=== PATIENT | female | born 1940 | race Caucasian/White ===

== ENCOUNTER → 2019-05-14 | Outpatient (CLI) | payer OTHER | LOC: HYPER 06:42 | DX: T87.89 Other complications of amputation stump (principal); E11.621 Type 2 diabetes mellitus with foot ulcer; L97.512 Non-pressure chronic ulcer of other part of right foot with fat layer exposed; E11.69 Type 2 diabetes mellitus with other specified complication; M86.8X8 Other osteomyelitis, other site; E11.52 Type 2 diabetes mellitus with diabetic peripheral angiopathy with gangrene; I96 Gangrene, not elsewhere classified; E11.22 Type 2 diabetes mellitus with diabetic chronic kidney disease; N18.6 End stage renal disease; I48.2 Chronic atrial fibrillation; K50.90 Crohn's disease, unspecified, without complications; Z87.891 Personal history of nicotine dependence; Z79.82 Long term (current) use of aspirin; Z99.2 Dependence on renal dialysis; Y83.5 Amputation of limb(s) as the cause of abnormal reaction of the patient, or of later complication, without mention of misadventure at the time of the procedure ==

== ENCOUNTER → 2019-05-28 | Outpatient (CLI) | payer OTHER | LOC: HYPER 06:23 | DX: T87.89 Other complications of amputation stump (principal); E11.621 Type 2 diabetes mellitus with foot ulcer; L97.512 Non-pressure chronic ulcer of other part of right foot with fat layer exposed; E11.69 Type 2 diabetes mellitus with other specified complication; M86.8X7 Other osteomyelitis, ankle and foot; E11.52 Type 2 diabetes mellitus with diabetic peripheral angiopathy with gangrene; I96 Gangrene, not elsewhere classified; E11.22 Type 2 diabetes mellitus with diabetic chronic kidney disease; I12.9 Hypertensive chronic kidney disease with stage 1 through stage 4 chronic kidney disease, or unspecified chronic kidney disease; N18.6 End stage renal disease; I48.2 Chronic atrial fibrillation; Z99.2 Dependence on renal dialysis; Z79.82 Long term (current) use of aspirin; Z87.891 Personal history of nicotine dependence; Y83.5 Amputation of limb(s) as the cause of abnormal reaction of the patient, or of later complication, without mention of misadventure at the time of the procedure ==

== ENCOUNTER → 2019-06-11 | Outpatient (CLI) | payer OTHER | LOC: HYPER 06:58 | DX: T87.89 Other complications of amputation stump (principal); E11.621 Type 2 diabetes mellitus with foot ulcer; L97.512 Non-pressure chronic ulcer of other part of right foot with fat layer exposed; E11.22 Type 2 diabetes mellitus with diabetic chronic kidney disease; N18.6 End stage renal disease; E11.52 Type 2 diabetes mellitus with diabetic peripheral angiopathy with gangrene; I96 Gangrene, not elsewhere classified; E11.69 Type 2 diabetes mellitus with other specified complication; M86.8X8 Other osteomyelitis, other site; I48.2 Chronic atrial fibrillation; K50.90 Crohn's disease, unspecified, without complications; Z79.82 Long term (current) use of aspirin; Z99.2 Dependence on renal dialysis; Z87.891 Personal history of nicotine dependence; Z89.522 Acquired absence of left knee; Z95.820 Peripheral vascular angioplasty status with implants and grafts; Y83.5 Amputation of limb(s) as the cause of abnormal reaction of the patient, or of later complication, without mention of misadventure at the time of the procedure ==

== ENCOUNTER → 2019-06-30 | Outpatient (CLI) | payer OTHER | LOC: HYPER 06:44 | DX: T87.89 Other complications of amputation stump (principal); L97.512 Non-pressure chronic ulcer of other part of right foot with fat layer exposed; E11.22 Type 2 diabetes mellitus with diabetic chronic kidney disease; N18.6 End stage renal disease; E11.52 Type 2 diabetes mellitus with diabetic peripheral angiopathy with gangrene; I96 Gangrene, not elsewhere classified; E11.69 Type 2 diabetes mellitus with other specified complication; M86.8X8 Other osteomyelitis, other site; I48.2 Chronic atrial fibrillation; Z99.2 Dependence on renal dialysis; Z87.891 Personal history of nicotine dependence; Z89.411 Acquired absence of right great toe; Z95.820 Peripheral vascular angioplasty status with implants and grafts; Z89.522 Acquired absence of left knee; Z79.82 Long term (current) use of aspirin; K50.90 Crohn's disease, unspecified, without complications; Y83.5 Amputation of limb(s) as the cause of abnormal reaction of the patient, or of later complication, without mention of misadventure at the time of the procedure ==

== ENCOUNTER → 2019-07-07 | Outpatient (CLI) | payer OTHER | LOC: HYPER 06:44 | DX: T81.89XD Other complications of procedures, not elsewhere classified, subsequent encounter (principal); E11.621 Type 2 diabetes mellitus with foot ulcer; L97.512 Non-pressure chronic ulcer of other part of right foot with fat layer exposed; E11.22 Type 2 diabetes mellitus with diabetic chronic kidney disease; N18.6 End stage renal disease; E11.52 Type 2 diabetes mellitus with diabetic peripheral angiopathy with gangrene; I96 Gangrene, not elsewhere classified; E11.69 Type 2 diabetes mellitus with other specified complication; M86.8X7 Other osteomyelitis, ankle and foot; I48.2 Chronic atrial fibrillation; Z79.82 Long term (current) use of aspirin; Z99.2 Dependence on renal dialysis; Z87.891 Personal history of nicotine dependence; Y83.8 Other surgical procedures as the cause of abnormal reaction of the patient, or of later complication, without mention of misadventure at the time of the procedure ==

== ENCOUNTER 2019-07-21 07:11 | Inpatient (IN) | payer OTHER ==
[~2019-07-21] VITALS: Ht 157.5 cm; Wt 49.4 kg
[2019-07-21 17:58] VITALS: BP 86/48
[2019-07-21 20:04] VITALS: BP 95/50
[2019-07-21 22:09] LABS: ABSOLUTE NEUTROPHILS 8.6 thou/uL (1.4-8.2); BASOPHILS 0.6 % (0.0-2.0); HEMOGLOBIN 9.7 gm/dL (12.0-15.0); POLYS 76.6 % (36.0-66.0)
[2019-07-21 22:10] LABS: EOSINOPHILS 1.2 % (0.0-3.0); LYMPHOCYTES 13.2 % (24.0-44.0); MCHC 31.3 g/dL (28.0-37.0); MCV 79.9 fL (80.0-100.0); MONOCYTES 8.4 % (1.0-8.0); PLATELET COUNT 351 thou/uL (150-400); RBC 3.88 mil/uL (4.20-5.00); RDW 19.5 % (10.5-14.5); WBC 11.3 thou/uL (4.0-11.0)
--- NOTE | 2019-07-21 22:21 | NUR ---
PATIENT ALERT AND ORIENTED AND DIRECT ADMIT WITH RIGHT LE CELLULITIS FROM DR. RADER OFFICE. EXPERIENCING 10/10 AND CRYING FORM RIGHT LE. , DEMETRICE AT BEDSIDE UPON ADMISSION AND LIVES AT HOME WITH . USES W/C FROM TRANSPORTATION. LEFT BKA 2 YEARS AGO. DIALYSIS MWF AND RIGHT CHEST DIALYSIS CATHETER. REGULAR DIET.
[2019-07-21 22:27] LABS: ALBUMIN 2.5 g/dL (3.4-5.0); CALCIUM 10.3 mg/dL (8.5-10.1); CREATININE 5.1 mg/dL (0.6-1.0); POTASSIUM 3.7 mmol/L (3.5-5.1); TOTAL BILIRUBIN 0.3 mg/dL (<0.1-1.0); TOTAL PROTEIN 7.4 g/dL (6.4-8.2)
[2019-07-22 03:24] VITALS: BP 103/50
--- NOTE | 2019-07-22 05:07 | NUR ---
ASSUMED CARE OF PT AT 1900HRS. PT AOX4 AND CALLS FOR ASSISTANCE NEEDED. PT IS ON DIALYSIS M, W & F. ACCESS ON RIGHT CHEST. LEFT BKA COMPLETELY HEALED. COLOSTOMY BAG ON LEFT QUADRANT. PT COMPLAINED OF PAIN ENTIRE SHIFT WITH MINIMAL RELIEF FROM PRN PAIN MEDS. VSS AND WILL CONTINUE TO MONITOR.
[2019-07-22 06:29] LABS: HEMATOCRIT 28.1 % (37.0-47.0); HEMOGLOBIN 8.9 gm/dL (12.0-15.0); MCH 25.4 pg (26.0-34.0); MCHC 31.7 g/dL (28.0-37.0); PLATELET COUNT 294 thou/uL (150-400); RBC 3.52 mil/uL (4.20-5.00); RDW 19.3 % (10.5-14.5); WBC 10.2 thou/uL (4.0-11.0)
[2019-07-22 06:34] LABS: INR 1.1
[2019-07-22 06:37] LABS: ABSOLUTE RETIC COUNT 0.1099 10^6/uL; OBSERVED RETIC COUNT 2.6 % (0.6-2.6)
[2019-07-22 06:45] LABS: ALBUMIN 2.2 g/dL (3.4-5.0); CALCIUM 9.6 mg/dL (8.5-10.1); CREATININE 5.6 mg/dL (0.6-1.0); PHOSPHORUS 6.2 mg/dL (2.5-4.9)
[2019-07-22 06:47] LABS: % SATURATION 23 % (20-39); IRON 30 ug/dL (50-170); TIBC 129 ug/dL (250-450)
[2019-07-22 07:30] VITALS: BP 95/46
[2019-07-22 07:55] LABS: FERRITIN 1330 ng/mL (8-252)
[2019-07-22 08:13] LABS: ABSOLUTE NEUTROPHILS 7.9 thou/uL (1.4-8.2)
[2019-07-22 08:17] LABS: ANISOCYTOSIS 2+; OVALOCYTES 1+
[2019-07-22 08:20] LABS: POLYCHROMASIA OCCASIONAL; TEARDROPS OCCASIONAL
--- NOTE | 2019-07-22 12:30 | NUR ---
PT ADMITTED RELATED TO WOUND. CM REVIEWED CHART AND SPOKE WITH CARE TEAM. CM ATTEMPTED TO MEET WITH PT AT BEDSIDE THIS DAY BUT PT WAS SLEEPING. CM CALLED PT'S SPOUSE AND HE INDICATED THAT THEY LIVE IN A HOUSE WITH 2 STEPS TO ENTER AND NO STEPS PT USES INSIDE. 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 HE INDICATED THAT PT HAD BEEN ON SERVICE WITH [facility] LAYAWAY CLERK. HE INDICATED THAT HE ANTICPATES PT RETURNING HOME WITH [facility] ONCE MEDICALLY STABLE. CM TO FOLLOW INDICATED WITH DC PLANNING.
--- NOTE | 2019-07-22 13:21 | EKG ---
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
[2019-07-22 15:27] VITALS: BP 106/62
--- NOTE | 2019-07-22 17:55 | NUR ---
Patient has been complaining of "level ten" unrelieved right foot pain. Received new orders from Dr Cuadra for Morphine 2mg/0.5mL IV push. Patient has expressed relief from this new order. Dialysis to be done this evening, as ordered. Patient has had a moderate amount of brown vaginal discharge. Blood pressure continues to run low which is "normal" for this patient. LSCTA (diminished), abdomen is round, BS active, no new open areas on skin. Will continue to monitor.
[2019-07-22 19:25] VITALS: BP 107/53
[2019-07-22] MEDS ORDERED: NEPHRO-VITE TA0.8 MG PO (20:39)
[2019-07-22] MEDS ORDERED: MIDODRINE HCL 55 M1 PO (20:40)
[2019-07-22] MEDS ORDERED: ASPIR 8181 M1 PO ×2 (20:41→20:42)
[2019-07-22] MEDS ORDERED: XARELTO2.5 MG PO (20:43)
[2019-07-22] MEDS ORDERED: SENSIPAR 30 MG30 M1 (20:44)
[2019-07-22] MEDS ORDERED: IBUPROFEN 200200 M1 (20:44)
[2019-07-22 23:55] VITALS: BP 91/53
--- NOTE | 2019-07-23 02:26 | NUR ---
ASSUMED CARE AROUND 1900. AXOX3. MED REC COMPLETED. PT DID NOT HAVE A LIST. LIST PROBABLY NOT COMPLETE. DONE MUCH PT REMEMBERS. DIALYSIS COMPLETED. BP NOTED LOW. CALLED FUEL BUYER RAMEZ MISSILE AND MISSILE CHECKOUT TECHNICIAN FOR HIMS. NS STOPPED AND MIDODRINE RESTARTED. NO S/S ACUTE DISTRESS NOTED OR REPORTED AT THIS TIME. WILL CONT TO MONITOR ANY CHANGES IN CONDITION.
[2019-07-23 04:15] VITALS: BP 116/46
[2019-07-23 08:09] LABS: HEP B SURFACE Ab(ANTI-HBS Reactive (()); HEPATITIS B SURFACE AG Negative (Negative)
[2019-07-23 08:16] VITALS: BP 93/53
--- NOTE | 2019-07-23 11:40 | HC ---
[facility] [place] [address] CONSULTATION Name: SERENITY LOVELACE Room #: 455-P ADM IN M.R.#: [id number] Admission: 07/21/19 Attend Phys: Slim Holliday MD Discharge: Date of : 42 Report #: [id number] THIS REPORT FOR: //name// CC: Zack Baumann DATE OF SERVICE: 07/22/2019 CHIEF COMPLAINT: Ulceration. HISTORY OF PRESENT ILLNESS: This is a 78-year-old female patient with a history of end-stage renal disease and peripheral vascular disease and prior left below knee amputation, who was admitted from the wound care clinic yesterday with increasing pain and redness involving her right foot, in particular the right first MTP or first metatarsal. She has had a prior amputation of the right toe. The patient notes continued and worsening pain and is now admitted for further evaluation and treatment. PAST MEDICAL HISTORY: Positive for history of end-stage renal disease, requiring hemodialysis, history of Crohn's disease, peripheral vascular disease, status post previous vascular bypass. ALLERGIES: CODEINE. SOCIAL HISTORY: The patient smoked 1 pack per day, having quit 5 years ago. No alcohol intake. FAMILY HISTORY: Positive for prostate cancer in her father. MEDICATIONS: Fludrocortisone, morphine, oxycodone, polyethylene glycol, and vancomycin. ALLERGIES: CODEINE. REVIEW OF SYSTEMS: CONSTITUTIONAL: The patient denies fever, chills, or weight loss. NEUROLOGICAL: The patient denies focal weakness. ENT: The patient denies earache, nasal drainage, sore throat. CARDIOVASCULAR: The patient denies chest pain, palpitations or diaphoresis. PULMONARY: The patient denies cough or shortness of breath. GASTROINTESTINAL: The patient denies nausea, vomiting, or diarrhea. ORTHOPEDIC: The patient has a prior left below-knee amputation and has significant pain involving her right foot and leg. [facility] [address] [place] [address] CONSULTATION Name: SERENITY LOVELACE Room #: 455-P ADM IN [facility].#: [id number] Admission: 07/21/19 Attend Phys: Slim Holliday MD Discharge: Date of : 42 Report #: [id number] Other systems in a 14-point review of systems are negative. PHYSICAL EXAMINATION: VITAL SIGNS: At this time Include temperature 36.3, pulse 41, respirations 13, blood pressure 95/46. GENERAL: This is a chronically ill-appearing female patient who appears to be in moderate discomfort. HEENT: Head is normocephalic. Nose and throat clear. NECK: Supple. LUNGS: Clear. ABDOMEN: Soft. Bowel sounds present. She has a colostomy in place. It appears to be functioning. EXTREMITIES: Lower extremity demonstrates healed prior left below knee amputation. She has a surgically absent right great toe. The amputation site is not entirely healed. Some of the tissue is contracted. It is very tender. She also has ulceration on the plantar aspect of the foot as well as the right second toe. Distal pulses are not palpable. NEUROLOGIC: The patient is alert and does move all 4 extremities spontaneously. LABORATORY DATA: Includes white blood cell count 10.2 with hemoglobin of 8.9, hematocrit 28.1. Sodium 136, potassium 4.0, chloride 101, CO2 20, BUN 44, creatinine 5.6, glucose 93, calcium is 9.6, phosphorus is 6.2. CRP is markedly elevated at 243.5, albumin is 2.2. MRSA PCR is negative. INR is 1.1. CLINICAL IMPRESSION: 1. Nonhealing surgical wound to the right foot following amputation of the right great toe. One would consider the possibility of underlying bone infection, i.e., osteomyelitis. 2. Severe peripheral vascular disease. Doppler studies on this admission demonstrate monophasic waveforms from the common femoral artery through superficial femoral artery, likely indicating aortic or iliac stenosis, occlusion from the popliteal artery throughout the runoff vessels in the calf with reconstitution of the dorsalis pedis in the foot, bypass graft in the thighs occluded. Recommendations for additional angiography were made by the radiologist reading the study. RECOMMENDATIONS: At this point in time, we will recommend Xeroform gauze dressing and a dry gauze dressing to the amputation site of the right foot. We will consult Interventional Radiology, also obtain plain film x-rays, and MRI of the right foot to evaluate for underlying bone infection. With her severe peripheral vascular disease, I think she would be at high risk for any surgical [address] [address] CONSULTATION Name: SERENITY LOVELACE Room #: 455-P ADM IN M.R.#: [id number] Admission: 07/21/19 Attend Phys: Slim Holliday MD Discharge: Date of : 42 Report #: [id number] intervention on the foot. It may be possible that she would be amenable to an endovascular procedure. I appreciate being asked to see her in consultation. <ELECTRONICALLY SIGNED> By: Griffin Franco MD 07/23/19 1140 1526 0208 Griffin Franco MD /nt
[2019-07-23 14:06] VITALS: BP 136/56
[2019-07-23 19:35] VITALS: BP 101/52
--- NOTE | 2019-07-23 20:10 | NUR ---
ASSUMED CARE OF PATIENT AT 0715, PATIENT ALERT AND ORIENTED X 4. PATIENT BEDREST. PATIENT HAS RIGHT FOOT WOUND, DRESSING C/D/I. PATIENT C/O PAIN WITH RIGHT FOOT, RECEIVED MORPHINE 2MG IV AND OXYCODONE 1 TABLET WITH PARTIAL RELIEF. PATIENT HAD LIGHT BREAKFAST, AND NPO FOR LUNCH FOR ARTERIOGRAM THIS AFTERNOON, PATIENT LEFT FLOOR AT 1500, VIA BED. PATIENT ARRIVED BACK ON THE UNIT AT ABOUT 1830, REPORT FROM MARIELA/RN. PATIENT ON BEDREST UNTIL 2140. PATIENT HAS DRESSING TO LEFT GROIN, NO OCCULSION FOUND. PATIENT CONTINUES WITH DISCHARGE FROM VAGINAL AREA, BROWNISH COLOR WITH FOUL ODOR, THIS RN NOTIFIED DR FU, RECEIVED ORDER FOR LOTRIMIN CREAM BID VAGINAL, ORDER FOR PELVIC ULTRASOUND WILL DONE IN AM. WHEN PATIENT ARRIVED BACK ON THE UNIT, NO C/O PAIN, SHE RECEIVED FENTANYL 25 MCG IV IN PROCEDURE. WILL CONTINUE TO MONITOR.
[2019-07-24 00:45] VITALS: BP 99/59
--- NOTE | 2019-07-24 04:30 | NUR ---
ASSESSMENTS COMPLETED. PT A&OX4. C/O OF SEVERE UNCONTROLLED PAIN TO LEFT RIGHT FOOT. PT STILL HAVING MODERATE BROWN FOWL ODOR VAGINAL DISCHARGE. LOTRIMIN BID WAS STARTED . PT HAS A COLOSTOMY AND IS PASSING A LOT OF FLATUS. PT IS TOTALLY DEPENDENT ON STAFF FOR ADL'S. PT IS GOING FOR DIALYSIS THIS MORNING (MWF).
[2019-07-24 05:11] LABS: CALCIUM 9.9 mg/dL (8.5-10.1); MAGNESIUM 1.5 mg/dL (1.8-2.4); PHOSPHORUS 6.8 mg/dL (2.5-4.9); POTASSIUM 4.3 mmol/L (3.5-5.1)
[2019-07-24 05:51] LABS: HEMATOCRIT 28.5 % (37.0-47.0); HEMOGLOBIN 8.7 gm/dL (12.0-15.0); MCHC 30.5 g/dL (28.0-37.0); RBC 3.48 mil/uL (4.20-5.00); RDW 18.6 % (10.5-14.5); WBC 13.1 thou/uL (4.0-11.0)
[2019-07-24 05:57] LABS: CREATININE 4.3 mg/dL (0.6-1.0)
[2019-07-24 08:26] VITALS: BP 103/74
--- NOTE | 2019-07-24 16:08 | NUR ---
CARE TEAM INDICATED WE ARE AWAITING POD CONSULT. IT IS LIKELY THAT PT WILL REMAIN HERE OVER THE WEEKEND. CM TO FOLLOW INDICATED WITH DC PLANNING.
[2019-07-24 16:55] VITALS: BP 92/50
[2019-07-24 19:15] VITALS: BP 94/48
--- NOTE | 2019-07-24 20:32 | NUR ---
PATIENT ALERT AND ORIENTED AND IN BED ALL DAY EXCEPT FOR US PROCEDURE. PATIENT SEEMS TO REST WELL AFTER IV AND PO MEDS GIVEN. PATIENT IS NOT EATING MUCH AND DIETARY NOTIFIED AND CAME TO DISCUSS DIET WITH PATIENT. WOUND DRESSING CHANGED. SPOKE WITH . NO VISITORS TODAY.
[2019-07-24 23:45] VITALS: BP 99/56
--- NOTE | 2019-07-25 03:27 | NUR ---
ASSUMED CARE OF PT @1900. PT A&OX4. PT APPEARS MORE COMFORTABLE AFTER PAIN MED WAS ADMINISTERED. RIGHT FOOT DRESSING, INTACT WITH MINOR DRAINAGE. PT HAD DIALYSIS YESTEDAY AND 1L OF FLUID WAS TAKEN OUT. PT STILL HAS VERY POOR APPETITE AND DECLINED ANY SUPPLEMENTS. V/S ARE STABLE. WILL CONT TO MONITOR
[2019-07-25 04:12] VITALS: BP 84/53
[2019-07-25 04:58] LABS: HEMATOCRIT 26.6 % (37.0-47.0); HEMOGLOBIN 8.2 gm/dL (12.0-15.0); MCHC 30.8 g/dL (28.0-37.0); MCV 81.3 fL (80.0-100.0); RBC 3.27 mil/uL (4.20-5.00); RDW 18.4 % (10.5-14.5); WBC 10.9 thou/uL (4.0-11.0)
[2019-07-25 05:12] LABS: CALCIUM 9.9 mg/dL (8.5-10.1); CREATININE 3.5 mg/dL (0.6-1.0); MAGNESIUM 2.4 mg/dL (1.8-2.4); PHOSPHORUS 5.6 mg/dL (2.5-4.9); POTASSIUM 3.8 mmol/L (3.5-5.1)
[2019-07-25 08:41] VITALS: BP 92/51
--- NOTE | 2019-07-25 12:33 | NUR ---
Received awake on bed. Due medications given as prescribed, able to swallow tablets w/o difficulty. Complained of pain, due PRN pain medications given as prescribed. On O2 at 2lpm via nasal cannula. With colostomy in place- output measured and recorded accordingly. Pt encouraged and assisted in eating and drinking. With dialysis external port at R chest- transparent dressing in place- pt's dialsis schedule every --, last dialysis was yesterday 07/24 as per shift supervisor melting nurse's report. With L BKA. With wound at R foot- dressing in place, changed by night staff nurse at 5am C/D/I. Pt turned regularly. With SL at R FA. With dressing at L groin- C/D/I. Pt seen by Dr Huynh this AM- wound assessed, pt not needing surgery, dressing changed by physician.
[2019-07-25 16:26] VITALS: BP 94/53
[2019-07-25 19:55] VITALS: BP 99/60
[2019-07-26] VITALS (8 sets, daily range): BP systolic 74–106; BP diastolic 42–62
--- NOTE | 2019-07-26 04:12 | NUR ---
ASSESSMENTS COMPLETED. PT C/O OF RIGHT FOOT PAIN AND WAS MEDICATED ORDERED, WITH SOME RELIEF. DREESINGS CLEAN, DRY AND INTACT. PT HAD MODERATE BROWN VAGINAL DISCHARGE. PT IS STILL ON THE LOTRIMIN CREAM BID. COLOSTOMY IS PATENT WITH MODERATE OUTPUT. PT IS ANURIC. VITALS STABLE. WILL CONT TO MONITOR
[2019-07-26 05:41] LABS: HEMATOCRIT 27.6 % (37.0-47.0); HEMOGLOBIN 8.4 gm/dL (12.0-15.0); MCH 24.6 pg (26.0-34.0); MCHC 30.3 g/dL (28.0-37.0); MCV 81.1 fL (80.0-100.0); RBC 3.4 mil/uL (4.20-5.00); RDW 18.3 % (10.5-14.5)
[2019-07-26 05:56] LABS: CALCIUM 9.8 mg/dL (8.5-10.1); MAGNESIUM 2.4 mg/dL (1.8-2.4); PHOSPHORUS 6.8 mg/dL (2.5-4.9); POTASSIUM 3.7 mmol/L (3.5-5.1)
[2019-07-26 05:57] LABS: CREATININE 5.2 mg/dL (0.6-1.0)
[2019-07-26 16:51] LABS: BE(vivo) -4.5 mmol/L (-2 to +3); HCO3 21.5 mmol/L (22.0-26.0); PCO2 43.3 mmHg (35.0-45.0); PO2 56.7 mmHg (80.0-100.0); pH 7.313 (7.360-7.450)
[2019-07-26 18:20] LABS: HEMATOCRIT 29.6 % (37.0-47.0); MCH 24.9 pg (26.0-34.0); MCHC 30.5 g/dL (28.0-37.0); MCV 81.6 fL (80.0-100.0); PLATELET COUNT 377 thou/uL (150-400); RBC 3.62 mil/uL (4.20-5.00); RDW 17.8 % (10.5-14.5); WBC 10.2 thou/uL (4.0-11.0)
[2019-07-26 18:30] LABS: CALCIUM 9.3 mg/dL (8.5-10.1); POTASSIUM 3.8 mmol/L (3.5-5.1)
[2019-07-26 18:36] LABS: ALBUMIN 2.1 g/dL (3.4-5.0); MAGNESIUM 2.4 mg/dL (1.8-2.4); TOTAL BILIRUBIN 0.3 mg/dL (<0.1-1.0); TOTAL PROTEIN 6.8 g/dL (6.4-8.2)
[2019-07-26 18:54] LABS: ABSOLUTE NEUTROPHILS 8.1 thou/uL (1.4-8.2)
[2019-07-26 18:55] LABS: ANISOCYTOSIS 1+
--- NOTE | 2019-07-26 19:43 | NUR ---
Assumed pt care this am, pt is scheduled for dialysis tomorrow. Wound care done, cultures sent to lab. Supplements were encouraged and were consumed , though meals were a full assists. Medication administered for her vaginal discharges, minimal discharge has been noted. Pt has a fever this am, managed with medication. Pt was lethargic in the afternoon, q2 turns and pericare done. Colostomy intact and care done. BP dropped to 74/45, pt was lethargy and skin was dusky. Informed Dr. Gonsalez, placed pt on trendelenberg, orderes flowed. Monitored pt vs til pt was jose miguel to the ICU, called to inform of the situations. All belongings and medication was brought down to the ICU along with her wheelchair. POC followed, report given to the ICU nurse.
[2019-07-26 19:53] LABS: BE(vivo) -4.2 mmol/L (-2 to +3); HCO3 21.8 mmol/L (22.0-26.0); PCO2 43.9 mmHg (35.0-45.0); PO2 55.6 mmHg (80.0-100.0); pH 7.313 (7.360-7.450); sO2 86.3 % (92.0-98.0)
--- NOTE | 2019-07-26 20:40 | NUR ---
DR HENRY CALLED FOR LOW BP AND ABG'S PH 7.31 LEFT ORDERS TO DC BICARB GTT AND TO INCREASE MIDDRINE TO 10 MG TID. HE STATES THE PT IS RENAL AND ALWAYS RUNS A LOW BP. WILL CONT TO MONITOR.
[2019-07-27] VITALS (16 sets, daily range): BP systolic 76–100; BP diastolic 30–60
--- NOTE | 2019-07-27 01:35 | NUR ---
SBP 78/44 ROMELIA AVALOS PRN PHYSICAL THERAPIST NOTIFIED. MIDODRINE 5 MG ORDERED AND GIVEN A ONE TIME DOSE. WILL CONT TO MONITOR.
--- NOTE | 2019-07-27 06:00 | NUR ---
PT RESTING QUIETLY. STARTED ON BIPAP PER ORDER. REMAINS ANURIC SBP 93/50 MAP 73 WILL HAVE DIALYSIS THIS AM. RIGHT FOOT DRESSING INTACT. SINUS RHYTHM. PT REMAINS A DNR. WILL CONT TO MONITOR
[2019-07-27 06:12] LABS: ABSOLUTE NEUTROPHILS 10.1 thou/uL (1.4-8.2); BASOPHILS 0.4 % (0.0-2.0); HEMATOCRIT 26.8 % (37.0-47.0); HEMOGLOBIN 8.3 gm/dL (12.0-15.0); LYMPHOCYTES 3.4 % (24.0-44.0); MCHC 30.8 g/dL (28.0-37.0); MCV 81.1 fL (80.0-100.0); MONOCYTES 3.4 % (1.0-8.0); PLATELET COUNT 378 thou/uL (150-400); POLYS 92.8 % (36.0-66.0); RBC 3.31 mil/uL (4.20-5.00); RDW 17.6 % (10.5-14.5); WBC 10.9 thou/uL (4.0-11.0)
[2019-07-27 06:33] LABS: ALBUMIN 1.9 g/dL (3.4-5.0); CALCIUM 9.2 mg/dL (8.5-10.1); CREATININE 6.7 mg/dL (0.6-1.0); MAGNESIUM 2.3 mg/dL (1.8-2.4); PHOSPHORUS 9.4 mg/dL (2.5-4.9); POTASSIUM 4.1 mmol/L (3.5-5.1); TOTAL BILIRUBIN 0.2 mg/dL (<0.1-1.0); TOTAL PROTEIN 6.3 g/dL (6.4-8.2)
--- NOTE | 2019-07-27 16:54 | NUR ---
FOLLOWING FOR DC PLANNING. CLINICAL INFO REVIEWED. PT TRANSFERRED TO ICU R/T SEPSIS WITH HYPOTENSION. ALSO REQUIRING BIPAP WHICH IS OFF NOW AND ON 3 LITERS NC. ON IV ABX AND WOUND CARE (FOOT OSTEO). PT LIVES AT HOME WITH SPOUSE AND HAD BEEM W/C LEVEL PRIOR TO ADMIT. PLANNING FOR HOME WITH HH RESUMPTION ([facility]
[2019-07-28] VITALS (22 sets, daily range): BP systolic 78–97; BP diastolic 42–72
[2019-07-28 05:58] LABS: HEMATOCRIT 24.6 % (37.0-47.0); HEMOGLOBIN 7.7 gm/dL (12.0-15.0); MCH 25.2 pg (26.0-34.0); MCHC 31.3 g/dL (28.0-37.0); MCV 80.5 fL (80.0-100.0); RBC 3.06 mil/uL (4.20-5.00); RDW 17.3 % (10.5-14.5); WBC 9.9 thou/uL (4.0-11.0)
[2019-07-28 06:06] LABS: APTT 34.7 Seconds (24.5-32.8); INR 1.3; PROTIME 13.5 Seconds (9.3-11.4)
--- NOTE | 2019-07-28 06:09 | NUR ---
ASSUMED CARE OF PT AT 1900. PT DROWSY, ORIENTED TO PERSON, PLACE AND SITUATION. DR CALDERON IN ROOM AT 1900 DISCUSSING RESECTION OF RIGHT GREAT TOE SURGERY. PT MADE NPO AFTER 0000. PT HAS BEEN C/O RIGHT GREAT TOE PAIN. PRN PAIN MEDS GIVEN PER ORDER. THIS AM PT STARTED ON FENTANYL DUE TO NPO STATUS. SR WITH PVCs ON THE MONITOR. BP SOFT THROUGH OUT NIGHT. WILL CONTINUE TO MONITOR PT.
[2019-07-28 06:38] LABS: CALCIUM 8.7 mg/dL (8.5-10.1); CREATININE 3.6 mg/dL (0.6-1.0); MAGNESIUM 1.9 mg/dL (1.8-2.4); POTASSIUM 3.6 mmol/L (3.5-5.1)
--- NOTE | 2019-07-28 13:33 | NUR ---
PT TO HAVE TOE AMPUTATED LATER TODAY. SEEN BY P.T. AND PT AND SPOUSE GOAL IS TO RETURN HOME AT DC WITH [facility]. PT W/C LEVEL PRIOR TO ADMIT AND TRANSFERS EASILY AND SPOUSE ABLE TO ASSIST. PT AND SPOUSE DO NOT WANT SKILLED REHAB. REQUESTED DC LODE MINER BLASTING CALL [facility] TO UPDATE IF CURRENTLY ON SERVICE OR FAX REFERRAL FOR POSSIBLE DC HOME 07/29/19 (DC TIMELINE PER DR. ALBERT TODAY IN [facility]). THERAPY WILL SEE AFTER AMPUTATION WELL.
--- NOTE | 2019-07-28 14:32 | NUR ---
PT SCHEDULED FOR SURGERY TODAY. MORE APPROPRIATE FOR O.T. TO ASSESS AFTER SURGERY WTIH NEW ORDERS DUE TO CHANGE IN STATUS. RN INFORMED.
--- NOTE | 2019-07-28 15:31 | NUR ---
patient to have sx today. Discussed post acute care with sp and patient. They prefer home with , [facility] care. Gave [employer] skilled list to review if post acute care needed at id.
--- NOTE | 2019-07-28 16:05 | NUR ---
PT IS ON SERVICE WITH [facility] FAXED CLINICAL UPDATE SPOKE WITH DERIC IN INTAKE SHE RECEIVED UPDATE AND THEY RESUME HH AT DISCHARGE. ANTICPATE DC TOMORROW. DCP TO FOLLOW.
--- NOTE | 2019-07-28 18:38 | NUR ---
SURGERY TODAY FOR REVISION OF R GREAT TOE. TOLERATED WELL. WILL RETURN TO UNIT WITH PACKING TO WOUND, 4X4, AND TERRIE WRAP. BP IN RECOVERY 90/50, HR, 76 AND SATS 100% ON 2LNC
--- NOTE | 2019-07-28 18:40 | HC ---
[facility] [place] [address] CONSULTATION Name: SERENITY LOVELACE Room #: 239-P ADM IN M.R.#: [id number] Admission: 07/21/19 Attend Phys: Slim Holliday MD Discharge: Date of : 42 Report #: [id number] THIS REPORT FOR: //name// CC: Zack Baumann DATE OF SERVICE: 07/25/2019 ADMISSION DIAGNOSES: Sepsis, right foot infection. HISTORY OF PRESENT ILLNESS: The patient is a 78-year-old female admitted for septicemia with increased pain and swelling to the right distal foot with open postoperative wound to the hallux amputation site. She is currently on parenteral vancomycin and ceftriaxone. She had an angiogram 2 days ago, which showed mild right SFA stenosis that was not felt to be flow limiting. Recent foot post-admission MRI shows inflammation to the right second toe intermediate and distal phalanges consistent with osteomyelitis, but there is no bone destruction. The MRI had no signs of infection to the distal right first metatarsal at the hallux amputation disarticulation site. The patient is alert and oriented, relates moderate pain with palpation to the right distal foot. LABORATORY DATA: WBC 10.9, hemoglobin 8.2, hematocrit 26.2, platelets 327. BUN 16, creatinine 3.5, glucose 65. Albumin 2.2. PHYSICAL EXAMINATION: The patient is status post left BKA. Her right foot has a wound at the hallux amputation site that is transversely oriented measuring roughly 5.0 x 2.0 x 1.0 cm. I cannot palpate bone, as her some soft tissue covering the distal first metatarsal. I cannot probe to the adjacent second digit or second MTP joint. There is no fluctuance or crepitation. The foot is slightly warm to the touch. The distal foot and toes are very painful to the touch. The second toe has a scab at the dorsal proximal aspect, but no signs of an open wound or signs of deep infection. Toenails are dystrophic without paronychia. No right popliteal adenopathy noted, negative Homans' and Amaral sign to right leg. IMPRESSION: Postoperative wound to right hallux amputation site, no clinical signs of abscess. PLAN: I do not recommend surgical intervention at this time. I do not see any evidence of an abscess to the wound, as unable to probe to the distal first metatarsal with a sterile Q-tip and there is no expressible fluid. There is no fluctuance or crepitation or clinical signs of abscess. I do not feel there is osteomyelitis to the right second toe, as there are no penetrating wound to the anteromedial distal phalanges, and the existing hallux amputation wound does not [address] [address] CONSULTATION Name: SERENITY LOVELACE Room #: 239-P ADM IN M.R.#: [id number] Admission: 07/21/19 Attend Phys: Slim Holliday MD Discharge: Date of : 42 Report #: [id number] track in that direction. Also, I did order a foot radiographs to look for any lytic bone destruction. I recommend continuing palliative wound care to the right foot per the wound care team. I do not recommend any formal surgical debridement at this time. <ELECTRONICALLY SIGNED> By: Anmol Huynh DPM 07/28/19 1840 1131 0007 Anmol Huynh DPM /nt
--- NOTE | 2019-07-28 18:40 | HC ---
[facility] [place] [address] CONSULTATION Name: SERENITY LOVELACE Room #: 239-P ADM IN M.R.#: [id number] Admission: 07/21/19 Attend Phys: Slim Holliday MD Discharge: Date of : 42 Report #: [id number] THIS REPORT FOR: //name// CC: Zack Baumann DATE OF SERVICE: 07/27/2019 CHIEF COMPLAINT: Followup of nonhealing ulceration to the right distal hallux amputation site. Prior MRI was negative for osteomyelitis of the distal first metatarsal, and it was noted that the great toe phalanges were surgically absent. Recent foot radiographs show a residual portion on the base of the proximal phalanx, which is articulating with the first metatarsal. The patient continues to have significant pain to the area with light touch. She has been afebrile, stable appetite. Recently transferred to the ICU for hypotension, on pressors. She is alert and oriented to her prior baseline. She dialyzed yesterday. She is on parenteral Zosyn and vancomycin, status post angiogram with noted stenosis to the right SFA, not felt to be flow limiting. Blood cultures pending, no growth so far. Right foot wound culture pending, no organisms on Gram stain. LABORATORY DATA: WBC 10.9, RBC 3.31, hemoglobin 8.3, hematocrit 26.8, platelets 378. BUN 29, creatinine 6.7, glucose 163. PHYSICAL EXAMINATION: Nonhealing ulceration to the prior right hallux amputation site with some scant purulence at the lateral wound margin. No visible bone with scant pale granulation across the wound bed. The area is exquisitely tender to the touch, low-grade inflammation, no signs of acute vascular embarrassment. The adjacent second toe is intact with a scab over the dorsal base of the phalanges. No signs of gangrene or deep infection to the second toe. Nonpalpable pedal pulses to the right foot. IMPRESSION: Likely osteomyelitis, residual phalangeal base and possibly distal first metatarsal. PLAN: We will plan surgical debridement of the right foot tomorrow to include resection of the residual phalangeal base and likely distal first metatarsal with bone and soft tissue cultures. I discussed the procedure with the patient and I will notify family. I will keep her n.p.o. past midnight. <ELECTRONICALLY SIGNED> By: Anmol Huynh DPM 07/28/19 1840 [id number] Anmol uHynh DPM /nt
[2019-07-29] VITALS (31 sets, daily range): BP systolic 81–123; BP diastolic 43–80
[2019-07-29 05:46] LABS: HEMATOCRIT 23.9 % (37.0-47.0); HEMOGLOBIN 7.5 gm/dL (12.0-15.0); MCH 25.1 pg (26.0-34.0); MCHC 31.2 g/dL (28.0-37.0); MCV 80.4 fL (80.0-100.0); RBC 2.98 mil/uL (4.20-5.00); RDW 17.6 % (10.5-14.5); WBC 9.3 thou/uL (4.0-11.0)
[2019-07-29 06:01] LABS: ALBUMIN 1.7 g/dL (3.4-5.0); CALCIUM 8.3 mg/dL (8.5-10.1); PHOSPHORUS 5.5 mg/dL (2.5-4.9); POTASSIUM 3.3 mmol/L (3.5-5.1)
--- NOTE | 2019-07-29 06:13 | NUR ---
PT ARRIVED TO ICU FROM RECOVERY ACCOMPANIED BY 2 RN's AT 1900. M/S TELE STATUS. BP SOFT THROUGH OUT THE NIGHT. HD THIS AM PER RENAL ORDERS. PT TOLERATING WELL. WILL MONITOR FOR DISRHYTHMIAS WHILE ON HD.
--- NOTE | 2019-07-29 08:01 | NUR ---
THIS AM AT 0702, WHILE RECEIVING HD, PT WENT INTO A-FIB WITH RVR. DR HENRY PAGED AND SPOKE COMMUNICATED TO DIALYSIS NURSE THAT HE WANTED CARDIOLOGY CONSULTED. CARDIOLOGY ANSWERING SERVICE FOR CARDIOLOGY CALLED AT 0715, STILL AWAITING CALL RETURN. DR ALBERT PAGED ANG GAVE ORDERS FOR AMIODARONE BOLUS. REPORT GIVEN TO ONCOMING RNs, HANY AND MAGDALENO.
--- NOTE | 2019-07-29 08:23 | EKG ---
[place] [address] [facility] [place] [address] ELECTROCARDIOGRAM REPORT Name: SERENITY LOVELACE Room #: 239-P ADM IN M.R.#: [id number] Admission: 07/21/19 Attend Phys: Slim Holliday MD Discharge: Date of : 42 Report #: [id number] THIS REPORT FOR: //name// 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 : 1940 Requested By: Bianca Huerta Order Number: [id number] MD: Trey Conrad Measurements Intervals [place] Rate: 157 P: [place]: QRS: 39 QRSD: 79 T: QT: 289 QTc: 468 Interpretive Statements Atrial fibrillation with rapid V-rate Low voltage, extremity leads Repolarization abnormality, prob rate related Compared to ECG 07/22/2019 08:49:21 Atrial fibrillation has replaced sinus tachycardia nonspecific change in the ST and T-wave segments Electronically Signed On 07-29-2019 8:23:14 CDT by Trey Conrad [email or web address] <ELECTRONICALLY SIGNED> By: Trey Conrad MD, [facility] 07/29/19 0823 5 5 Trey Conrad MD, [facility] /EPI
--- NOTE | 2019-07-29 10:20 | NUR ---
Converted to SR 90's after Lopressor 5mg slow IVP, Amiodarone bolus of 150mg IVPB, and start of Amiodarone gtt at 1 mg/min. Hemodialysis completed. 500ml UF removed.
--- NOTE | 2019-07-29 16:05 | NUR ---
AMiodarone gtt started at 1005 after 150mg IVPB bolus at 1 mg/min x6 hrs. Decreased to 0.5mg/min at 1605 as ordered. Pt remains in SR.
--- NOTE | 2019-07-29 16:53 | NUR ---
Report to Lizbeth TRAN. Staffing change.
[2019-07-30] VITALS (7 sets, daily range): BP systolic 88–118; BP diastolic 56–72
--- NOTE | 2019-07-30 05:08 | NUR ---
PT. ARRIVED AT FLOOR AROUND 0130; PT. CRYING; C/O PAIN; ALERT TO PERSON; ST. "LEAVE ME ALONE"; PRN PAIN MEDICATION GIVEN; PAIN RE-ASSESSMENT PT. SLEEPING; AROUND 0330 SLEEP INTERRUPTED TO CHANGE COLOSTOMY BAG; PT. AOX4; ST. DECREASE PAIN; HELPED CHANGE COLOSTOMY BAG; CHECK CHARTING; VS WNL; SINUS RYTHM THROUGH THE NIGHT; ABLE TO REST WITH EYES CLOSED FOR A FEW HOURS; MONITORING; WILL PASS ON REPORT.
[2019-07-30] MEDS ORDERED: OXYCODONE HCL 55 MG PO (09:33)
[2019-07-30] MEDS ORDERED: PACERONE 200 M200 M1 PO (09:33)
[2019-07-30] MEDS ORDERED: ZOSYN 3.3753.375 GM IV (09:34)
[2019-07-30] MEDS ORDERED: VAN500AD IV (09:36)
[2019-07-30] MEDS ORDERED: GYNE-LOTRIMIN-745 GM VAG (09:36)
[2019-07-30] MEDS ORDERED: FLORINEF ACETA0.1 MG PO (09:36)
--- NOTE | 2019-07-30 11:17 | NUR ---
WOUND CARE FOLLOW UP; ROUNDING WITH DR MARIELA BASURTO TODAY. THE DRESSING WAS ALREADY DONE TODAY AND IT IS VERY PAINFUL TO THE PATIENT. DR BASURTO WAS ABLE TO ASSESS THE TOES. RECOMMENDATIONS; CONTINUE CURRENT TREATMENT
[2019-07-30] MEDS ORDERED: AUGMENTIN 875-1 EACH PO (11:33)
--- NOTE | 2019-07-30 12:27 | NUR ---
patient to dc home today, using fina scott faxed orders to [place] office, [place]
--- NOTE | 2019-07-30 15:24 | NUR ---
SNF recommendations discussed with the pt at bedside and her spouse via phone. Pt initially was adament about returning home with Tessy BENZ and going to her outpt dialysis. After talking with her spouse, she is now agreeable to a snf stay due to her need for skilled monitoring, o2 weaning, pain mgnt, therapy for transfer training and adl's. SNF list for [employer] reviewed. The pt's dialysis clinic is [facility] at [phone] and her schedule is 11:15am MWF. The pt has been to snf in the past and prefers to go to [facility] on [address] . Dc cyber intel planner faxed the referral. Java Flex Developer spoke with Giulia in admissions and they can accept pending ins auth. She will submit this afternoon. The pt is normally not on o2 or bipap at home. Her dialysis clinic needs her dc summary, flow sheets, labs, and consults faxed to [phone], phone [phone]. [facility] can provide w/c van transport to dialysis. Tessy BENZ updated on the dc plan as well as the attending and the care team. Will follow and arrange her transfer once auth obtained.
--- NOTE | 2019-07-30 17:36 | NUR ---
ASSUMED CARE OF PT AT SHIFT CHANGE. ASSESSMENTS CHARTED. MED GIVEN PER JAN. VSS. A&O. PT WORKED BRIEFLY WITH PHYS THERAPY. PAIN MANAGED WTIH PO AND IV MEDS. PT HAS COLOSTOMY BAG AND IS ANURIC. WAITING FOR AUTH TO DC TO SNF. WILL CONTINUE TO MONITOR AND FOLLOW POC.
[2019-07-31 03:00] VITALS: BP 90/53
--- NOTE | 2019-07-31 03:11 | NUR ---
RECEIVED PT'S CARE AT 1900; PT. ON BED; RESTING WITH EYES CLOSED; SLEEP INTERRUPTED DURING SHIFT CHANGE; ALERT; DROWSY; RECOGNIZED NURSE COMMING BACK; DURING ASSESSMENT C/O PAIN; 06/27; PRN PAIN MEDICATION GIVEN TOGETHER WITH HS MEDICATION; SBP ON THE 90s; NO C/O SOB; NO C/O HEADACHE; PAIN RE-ASSESSMENT PT. RESTING WITH EYES CLOSED; TURNED FROM SIDE TO SIDE THROUGH THE NIGHT; SYNUS RYM; MONITORING; ASSESSMENT CHARGED; FOLLOWING POC; WILL PASS ON REPORT.
[2019-07-31 07:25] VITALS: BP 98/57
--- NOTE | 2019-07-31 09:56 | NUR ---
AWAKE, ALERT, CALM, COOPERATIVE. ASSISTED WITH BREAKFAST TRAY AND FEEDS HERSELF. A.M. MEDS HELD PER NUCLEAR POWER REACTOR OPERATOR; DIALYSIS IN PROGRESS NOW. FALL PRECAUTIONS IN PLACE. CLOSE TO NURSES' STATION. FREQUENT CHECKS. WILL CONTINUE TO MONITOR.
[2019-07-31 11:54] VITALS: BP 96/54
--- NOTE | 2019-07-31 15:55 | NUR ---
PT DISCHARGING TODAY TO [facility] RECEIVED CONFIRMATION LEFT MSG WITH JIMENA IN ADM THAT DC ORDERS/SUMMARY HAVE BEEN FAXED.
--- NOTE | 2019-07-31 16:25 | NUR ---
Auth rec'd from the ins per Giulia in admissions at [facility]. They will transport the pt at 5pm today. Dc orders faxed and confirmed with Giulia. Dc time and plan confirmed with the pt at bedside and her spouse via phone. He will meet her at the facility at 5:30pm. Chart copy and scripts ready to be sent with the pt. Nursing to call report. Dc summary and instr faxed to her dialysis clinic as well for resumption on Saturday at 11:15am. SNF to transport her. Care team updated. Pt off bipap and weaning down on o2 at 2liters.
[2019-07-31 16:43] VITALS: BP 104/55
--- NOTE | 2019-07-31 17:09 | PATH ---
[facility] [address] [place] [address] PATHOLOGY RPT PROCEDURE Name: SERENITY LOVELACE Room #: 202-P ADM IN M.R.#: [id number] Admission: 07/21/19 Date of : 44 Discharge: Report #: [id number] Path Case #: [id number] LCA Accession Number: [id number] . 01 Material submitted: . toe - RIGHT DISTAL 1ST METATARSAL AND RESIDUAL GREAT TOE BONE. Modifiers: right, distal . 01 Clinical history: . Osteomyelitis right first metatarsal . 02 Diagnosis: Toe, right distal first metatarsal and residual great toe bone, amputation: - Fragments of bone showing acute and chronic osteomyelitis. - Inked margins showing viable and unremarkable bone as well as cartilage. (IUV:loraine; 07/31/2019) QMS 07/31/2019 1345 Local . 02 Electronically signed: . Joyce Luke MD, Pathologist NPI- [id number] . 01 Gross description: . The specimen is received in formalin, labeled "Serenity Lovelace, right distal first metatarsal and residual great toe". Received is a segment of bone displaying one blunt margin, consistent with transection, and one smooth, convex margin, consistent with disarticulation, measuring 2.6 x 2.3 x 2.0 cm in greatest dimensions. The transected margin is inked black. A full-thickness cross-section is submitted in cassette A1, following decalcification. . Also received within the specimen container is a segment of pale bajwa soft tissue with attached bone displaying two smooth, does articulated margins measuring 3.8 x 2.4 x 1.0 cm in greatest dimensions. One of the disarticulated margins is fractured in appearance. These margins are inked black. A full thickness cross-section is submitted in cassette A2, following decalcification. (CAA; 07/30/2019) QA/[facility] 07/30/2019 0926 Local . 02 Pathologist provided ICD-10: M86.171, M86.671 . 02 CPT . 515749, 720803 Specimen Comment: A courtesy copy of [place] [address] PATHOLOGY RPT PROCEDURE Name: SERENITY LOVELACE Room #: 202-P ADM IN M.R.#: [id number] Admission: 07/21/19 Date of : 44 Discharge: Report #: [id number] Path Case #: [id number] Specimen Comment: [phone], . Specimen Comment: Report sent to / DR ZABALA Performed at: [address], [place], [place] [id number] MD Von Kellogg MD Phone: [phone] Performed at: [address] [id number] MD Joyce Luke MD Phone: [phone]
[2019-07-31] MEDS ORDERED: GABAPENTIN 100100 MG PO (18:09)
--- NOTE | 2019-07-31 18:22 | NUR ---
ASSUMED CARE AT 1300, SHIFT ASSESSMENT DONE, MEDS GIVEN, VSS. REPORTED PAIN, PRN PAIN MEDS GIVEN. DIALSIS M/W/. DISCHARGE ORDER RECEIVED, BOTH PERIPHERAL IV'S WAS TAKEN OUT. COLOSTOMY IN PLACE. REPORT CALLED TO DAKOTAH AND GIVEN TO GRISELDA. PT LEFT WITH TRANSPORTATION AT 1800
--- NOTE | 2019-08-11 06:52 | H ---
[facility] [place] [address] HISTORY AND PHYSICAL Name: SERENITY LOVELACE Room #: 202-P [facility] IN M.R.#: [id number] Admission: 07/21/19 Attend Phys: Slim Holliday MD Discharge: 07/31/19 Date of : 44 Report #: [id number] THIS REPORT FOR: //name// CC: Zack Baumann DATE OF SERVICE: 07/21/2019 CHIEF COMPLAINT: Progressively worsening pain and cellulitis in the right lower extremity and therefore is being admitted as a direct admission by Dr. Marlon Baumann. HISTORY OF PRESENT ILLNESS: The patient is a very pleasant 78-year-old female who informs me that she has been having severe pain for the past 2 weeks with progressively worsening redness in the right foot. The patient had amputation done of the right toe approximately 6 months ago and has not had any improvement in the skin cellulitis as well as the wound. The patient keeps followup appointment. She does have known end-stage renal disease as well as a severe peripheral vascular disease. The patient informs me that she has not had any fever, shaking chills, night sweats. The wound is progressively worse in the last 2 weeks and more worse than wound is her pain. The patient informs me that she was on hydrocodone at home and that was not controlling her pain at all. The patient denies any fever, chills, night sweats. The patient denies any nausea or vomiting. She always has diarrhea she informs me since she had colostomy, which was put approximately 33 years ago because of her Crohn's disease. The patient informs me that in the past IV fentanyl has worked well in the hospital settings and she would really like some pain relief. The patient denies any dizziness, lightheadedness or fall or any chest pain, chest pressure, cough, sputum production, shortness of breath, orthopnea, paroxysmal nocturnal dyspnea. PATIENT'S PRIMARY CARE PHYSICIAN: Dr. Zack Orozco. PATIENT'S OIL HOUSE ATTENDANT: Dr. Villatoro. ALLERGIES: THE PATIENT IS ALLERGIC TO CODEINE, WHICH CAUSES HIVES OR RASH. PERSONAL AND SOCIAL HISTORY: The patient smoked 1 pack per day, but quit 5 years ago. Denies any alcohol intake. She wishes to be DNR. Her emergency contact can be reached at [phone], is her , Asiya. FAMILY HISTORY: The patient informs me that mom had all kinds of health problems and she at the age of 83 years; however, dad in his 80s with prostate cancer. [address] [address] HISTORY AND PHYSICAL Name: SERENITY LOVELACE Room #: 202-P [facility] IN M.R.#: [id number] Admission: 07/21/19 Attend Phys: Slim Holliday MD Discharge: 07/31/19 Date of : 44 Report #: [id number] REVIEW OF SYSTEMS: A 10-point review of systems was done, please see HPI above. The patient has a colostomy with soft stool noted. The patient denies any black stool or melanotic stool or hematochezia. PHYSICAL EXAMINATION: VITAL SIGNS: Temperature 36.3, heart rate 70, respirations 16, blood pressure 86/48, which improved to 95/50, pulse oximeter 90-97% on room air. GENERAL: Alert and oriented to time, place and person, a very pleasant 78-year-old female who is lean and thin and is complaining of pain 8/10. HEENT: Normocephalic, atraumatic. Pupils equally round, reactive to light. Conjunctivae are clear. Sclerae nonicteric. Oropharynx clear. Mucous membranes moist. NECK: Supple, no JVD, no lymphadenopathy. HEART: S1, S2 regular. No murmur, no S3, no S4. LUNGS: Distant breath sounds, but clear to auscultation bilaterally without any crackles or wheezes. ABDOMEN: Soft, nontender, nondistended, normal active bowel sounds. CHEST: The patient has a dialysis port on the right anterior chest. EXTREMITIES: Right foot has been in the dressing and Dr. Marlon Baumann had done the dressing change today this afternoon and that there is no drainage noted. The patient has left leg BKA and right toe amputated and other than that, no skin breakdown noted. NEUROLOGIC: Exam is completely nonfocal. PAST MEDICAL HISTORY: Significant for: 1. End-stage renal disease. 2. Peripheral vascular disease, left leg. 3. Crohn's disease, status post total colectomy and colostomy, not sure if the colectomy was done because of Crohn's disease; however, the patient informs me it was done 33 years ago. PAST SURGICAL HISTORY: 1. The patient had a dialysis port catheter placed. 2. Right toe amputation. 3. Colostomy. HOME MEDICATIONS: 1. Promethazine 5 mg daily. 2. Nephro-Zofia daily. 3. Sevelamer 0.8 gram packet t.i.d. 4. Xarelto 2.5 mg daily. 5. Neurontin 100 mg t.i.d. 6. [place]. 7. Ultram 50 mg t.i.d. p.r.n. 8. Sulfasalazine 500 mg daily. The patient has completed doxycycline treatment [facility] [place] [address] HISTORY AND PHYSICAL Name: SERENITY LOVELACE Room #: 202-P DIS IN M.R.#: [id number] Admission: 07/21/19 Attend Phys: Slim Holliday MD Discharge: 07/31/19 Date of : 42 Report #: [id number] outpatient as well. 9. Plavix 75 mg daily. 10. Florinef 0.1 mg daily; however, the patient does not have any of her medications with her. LABORATORY DATA: WBC 11.3, hemoglobin 9.7, hematocrit 31.0, platelet count 351, differential with segmented neutrophils 76.6%. Mild lymphopenia noted. Absolute neutrophil count is 8600. Chemistry is pending and the results will be called to Ms. Zunilda Angelo who is skilled nursing facilities professional [facility]. ASSESSMENT AND PLAN: 1. Nonhealing right foot wound and cellulitis. We will go ahead and start empirically vancomycin and the patient has received doxycycline treatment outpatient. I do not have any cultures available. We will discuss with Dr. Marlon Baumann tomorrow. Consult has been placed for Dr. Marlon Baumann as well as a renal consult has been entered for hemodialysis. Vancomycin per pharmacy consult has been done and MRSA nares will be ordered. 2. For end-stage renal disease, Nephrology has been consulted. 3. Crohn's disease with a history of being on sulfasalazine at home. I do not have the dosing and interval available. We will wait for the list of medications obtained from the patient's pharmacy. 4. Hypotension. We will give gentle IV fluids and the patient is also noted to be bradycardic with a heart rate of 46, we will go ahead and get a 12-lead EKG as well and if the EKG shows any heart block, then we will move the patient to a telemetry unit or we will put telemetry on board. 5. The patient wishes to be DNR. The orders are written and plan of care was discussed with the patient. 6. For anemia, we will go ahead and do iron studies tomorrow morning as well as a ferritin, TIBC, and B12 and retic panel. Likely, the patient has anemia of chronic disease. We will also get the labs from her game manager once we have the information available. We will send stool for Hemoccult testing. <ELECTRONICALLY SIGNED> By: Gabi Gonsalez MD 08/11/19 0652 2219 2250 Gabi Gonsalez MD /nt
--- NOTE | 2019-08-14 07:16 | HC ---
[facility] [place] [address] CONSULTATION Name: SERENITY LOVELACE Room #: 202-P [facility] IN M.R.#: [id number] Admission: 07/21/19 Attend Phys: Slim Holliday MD Discharge: 07/31/19 Date of : 44 Report #: [id number] THIS REPORT FOR: //name// CC: Zack Baumann DATE OF SERVICE: 07/27/2019 CHIEF COMPLAINT: Nonhealing ulceration to right distal hallux amputation site with type 2 diabetes mellitus and PAD. The patient has a nonhealing wound from prior hallux amputation with residual phalangeal base articulating with the distal first metatarsal. MRI report was suggestive of osteomyelitis of the second toe intermediate distal phalanges, but there is no wound in that region. She is on parenteral Zosyn and vancomycin with good tolerance. Recent blood and wound cultures are pending. She had recent aortogram during this hospitalization, which showed some stenosis to the right superficial femoral artery, which was not thought to be flow limiting. LABORATORY DATA: WBC 10.9, RBC 3.31, hemoglobin 8.3, hematocrit 26.8, platelets 378. BUN 29, creatinine 6.7, glucose 163. PHYSICAL EXAMINATION: Ulceration to the right hallux amputation site measures roughly 2.5 x 3.0 x 0.8 cm. No visible bone, the wound bed has a pale fibronecrotic slough with scant purulence at the lateral aspect. The wound does not communicate with the second toe or second MTP joint. The foot is cool to touch with nonpalpable dorsalis pedis and posterior tibial pulses. There is no cyanosis or signs of acute vascular embarrassment. The wound margins have delayed capillary refill and are cool to touch. There is no healthy granulation to the wound bed, and the periwound is very painful to the touch. IMPRESSION: Osteomyelitis to residual proximal phalangeal base at first metatarsophalangeal joint. PLAN: I recommend resection of the residual phalangeal base from the distal first metatarsal and resection of the metatarsal head to ensure clear margins. Based on reviewing the foot radiographs, the remaining phalangeal base has osteolysis and communicates with the wound, therefore it is likely infected and necrotic. I will discuss with Medicine and keep the patient n.p.o. past midnight. <ELECTRONICALLY SIGNED> By: Anmol Huynh DPM 08/14/19 0716 1837 0216 Anmol Huynh DPM /nt
--- NOTE | 2019-08-14 07:16 | O ---
[facility] [place] [address] OPERATIVE REPORT Name: SERENITY LOVELACE Room #: 202-P [facility] IN M.R.#: [id number] Admission: 07/21/19 Attend Phys: Slim Holliday MD Discharge: 07/31/19 Date of : 44 Report #: [id number] THIS REPORT FOR: //name// CC: Zack Baumann DATE OF SERVICE: 07/28/2019 PREOPERATIVE DIAGNOSIS: Osteomyelitis, proximal phalanx of the great toe, right foot. POSTOPERATIVE DIAGNOSIS: Osteomyelitis, proximal phalanx of the great toe, right foot. PROCEDURES: 1. Resection residual proximal phalangeal base at right great toe joint. 2. Resection right distal first metatarsal and tibial and fibular sesamoids. 3. Incision and drainage, right foot. 4. Skin flap, right foot with primary closure over drain. ANESTHESIA: MAC. INJECTABLES: 25 mL of 0.5% Marcaine plain. SUTURES: 3-0 nylon. SPECIMENS: Right distal first metatarsal, tibial and fibular sesamoids, residual phalangeal base of the great toe. CULTURES: 1. Bone, proximal phalangeal base of the right great toe, aerobic and anaerobic. 2. Soft tissue, right foot, aerobic and anaerobic. ESTIMATED BLOOD LOSS: Minimal. HEMOSTASIS: Right ankle pneumatic tourniquet at 250 mmHg. COMPLICATIONS: None. DESCRIPTION OF PROCEDURE: The patient brought to the OR and left in her bed for the procedure. MAC anesthesia was administered. A well-padded right ankle pneumatic tourniquet was placed and a local anesthetic block was given to the right foot. After the foot was prepped and draped aseptically and exsanguinated [facility] [address] [place] [address] OPERATIVE REPORT Name: SERENITY LOVELACE Room #: 202-P DIS IN M.R.#: [id number] Admission: 07/21/19 Attend Phys: Slim Holliday MD Discharge: 07/31/19 Date of : 42 Report #: [id number] with inflation of the tourniquet, a #10 scalpel was used to create dorsal incision over the distal first metatarsal with sharp dissection off the distal first metatarsal and phalangeal base. There was a residual portion of the proximal phalangeal base still articulated with the distal first metatarsal. The bone was removed and discolored with lysis and visible necrosis. A portion was sent for bone culture and the remaining bone for surgical pathology. The distal first metatarsal head had some slight yellowish discoloration with no tomasa lysis. I transected the distal head and sent it for pathology as well. The tibial and fibular sesamoids were then removed and also sent. I debrided the wound interior fibronecrotic tissue and tendons. Electrocautery was used for hemostasis. The skin margins were remodeled to facilitate closure of the skin flap. The wound was flushed with sterile saline and dried. A plantar medial flap was mobilized laterally and sutured with 3-0 nylon in simple interrupted fashion, complete closure of the wound was obtained and I used a piece of half inch Nu Gauze as a drain between 2 sutures. The foot was cleansed, dried and dressed with fluffs, ABDs and Kerlix gauze. The patient left the OR with no pain or complications. The tourniquet was deflated prior to completion of the bandage change. There is no active bleeding through the bandage upon transfer to the PACU. <ELECTRONICALLY SIGNED> By: Anmol Huynh DPM 08/14/19 0716 1859 [id number] Anmol Huynh DPM /nt
--- NOTE | 2019-08-14 07:16 | O ---
[facility] [place] [address] OPERATIVE REPORT Name: SERENITY LOVELACE Room #: 202-P [facility] IN M.R.#: [id number] Admission: 07/21/19 Attend Phys: Slim Holliday MD Discharge: 07/31/19 Date of : 42 Report #: [id number] THIS REPORT FOR: //name// CC: Zack Baumann DATE OF SERVICE: 07/28/2019 SURGEON: Anmol Huynh DPM PREOPERATIVE DIAGNOSIS: Osteomyelitis of residual right proximal phalangeal base with deep tissue infection. POSTOPERATIVE DIAGNOSIS: Osteomyelitis of residual right proximal phalangeal base with deep tissue infection. PROCEDURES: 1. Resection of the residual phalangeal base, right first MTP joint and the TP joint. 2. Resection of right distal first metatarsal and sesamoid. 3. Incision and drainage, right foot. 4. Skin flap, right foot with primary closure over Nu Gauze drain. ANESTHESIA: MAC. INJECTABLES: 20 mL of 0.5% Marcaine plain. HEMOSTASIS: Right ankle pneumatic tourniquet at 250 mmHg. ESTIMATED BLOOD LOSS: Roughly 10 mL. SUTURES: 3-0 nylon. SPECIMENS: Right distal first metatarsal and sesamoids, proximal phalangeal base on right great toe. CULTURES: 1. Bone, phalangeal base, aerobic and anaerobic. 2. Soft tissue, right foot, aerobic and anaerobic. COMPLICATIONS: None. DESCRIPTION OF PROCEDURE: The patient was brought to the OR and remained in her medical bed. MAC anesthesia was administered and a well-padded right ankle [facility] [address] [place] [address] OPERATIVE REPORT Name: SERENITY LOVELACE Room #: 202-P DIS IN M.R.#: [id number] Admission: 07/21/19 Attend Phys: Slim Holliday MD Discharge: 07/31/19 Date of : 42 Report #: [id number] tourniquet was placed. A local anesthetic block was given with 0.5% Marcaine plain for a total of 25 mL. The foot was prepped and draped aseptically. After exsanguination and inflation of tourniquet, #10 scalpel was used to create a dorsal linear incision over the distal first metatarsal with dissection down to bone. The proximal phalangeal base was lytic, discolored and appeared nonviable. A portion of this bone was sent for aerobic and anaerobic bone cultures, and the remaining phalangeal base was sent for pathology. The head of the first metatarsal was slightly discolored, but no visible lysis. I resected the head of the first metatarsal at the neck and sent it for pathology as well. I then removed the tibial and fibular sesamoids which were also sent for specimen. I debrided the intraoperative wound tenderness of all tendons and fibronecrotic tissue. Electrocautery was utilized for hemostasis. The skin margins were remodeled to facilitate flap closure. The plantar medial flap was mobilized laterally and sutured with 3-0 nylon in simple interrupted fashion with complete closure of the wound over a half inch Nu Gauze drain. The foot was cleansed and dried with a sterile bandage applied. The tourniquet was deflated with no complications or bleeding through the bandage. The patient left the OR with no pain or complications noted. <ELECTRONICALLY SIGNED> By: Anmol Huynh DPM 08/14/19 0716 1853 2049 Anmol Huynh DPM /nt
--- NOTE | 2019-08-24 17:56 | HC ---
[facility] [place] [address] CONSULTATION Name: SERENITY LOVELACE Room #: 202-P [facility] IN M.R.#: [id number] Admission: 07/21/19 Attend Phys: Slim Holliday MD Discharge: 07/31/19 Date of : 42 Report #: [id number] THIS REPORT FOR: //name// CC: Zack Baumann DATE OF SERVICE: 07/22/2019 NEPHROLOGY CONSULTATION REASON FOR CONSULTATION: End-stage renal disease requiring hemodialysis. HISTORY OF PRESENT ILLNESS: This is a 78-year-old female who was admitted yesterday after seeing Dr. Marlon Baumann. She has a prior right great toe amputation, but has had pain and erythema and warmth in her right foot and is admitted for treatment of cellulitis. She is having further evaluation from a vascular standpoint. From our standpoint, the patient has end-stage renal disease. She tells me she has been on dialysis for the past 5 years. She is unfamiliar with the etiology of her end-stage renal disease, but it certainly sounds like it is likely due to vascular disease and hypertension. She says she previously dialyzed using a right arm fistula, but now dialyzes using a tunneled right internal jugular vein catheter over the past couple of years. She normally dialyzes on a Saturday, Saturday, Saturday basis at [facility], which is by [facility]. She says she last dialyzed 2 days ago on 07/20/2019. She normally dialyzes 3 hours 15 minutes. She is unaware of her ultrafiltration. She is unaware of her other dialysis parameters. PAST MEDICAL HISTORY: Extensive vascular disease. She has had a previous left kjgis-pdo-ocay amputation. 6 months ago, she had a right great toe amputation. She has had prior dialysis access procedure. She has had the tunneled catheter as noted above. She has a long history of Crohn's, which dates back for much of her adult life. She ended up having a colectomy and has an ileostomy. She still has liquid stools from that. She remains on sulfasalazine. She has anemia of end-stage renal disease. She denies cardiac or pulmonary history. MEDICATIONS: Listed as Nephro-Zofia daily, Renvela 800 mg t.i.d. with meals, Xarelto 2.5 mg daily, Neurontin 100 mg t.i.d., Ultram for pain, sulfasalazine 500 mg daily, Plavix 75 mg daily and Florinef 0.1 mg daily. That is based upon outpatient records. ALLERGIES: CODEINE. [address] [address] CONSULTATION Name: SERENITY LOVELACE Room #: 202-P [facility] IN M.R.#: [id number] Admission: 07/21/19 Attend Phys: Slim Holliday MD Discharge: 07/31/19 Date of : 42 Report #: [id number] FAMILY HISTORY: Negative for renal disease. SOCIAL HISTORY: The patient is , list an address in [place], [place]. REVIEW OF SYSTEMS: Has been very weak. Having pain in her right leg. Denies dyspnea, cough, chest pain. She is very tender in the right foot. She recalls no recent symptoms with her dialysis. PHYSICAL EXAMINATION: GENERAL: Very frail female. VITAL SIGNS: Blood pressure 106/62, heart rate 95, oxygen saturation 96%, respiratory rate 17, temperature 98.9. She is 5 feet 2 inches tall, weighed only 89 pounds. HEENT: Shows pupils are equal and reactive. Sclerae nonicteric. Oral mucosa is dry. NECK: Veins are not distended. She has a right internal jugular vein tunneled dialysis catheter in place. CHEST: Clear bilaterally. HEART: Regular rate and rhythm. ABDOMEN: Has a few bowel sounds present. Ostomy is present with draining of liquid stool. EXTREMITIES: Show a left xdbut-jpr-uufq amputation. She has a right great toe amputation. Right foot and leg are hot and tender. No active drainage. LABORATORY DATA: Sodium 140, potassium 4.0, chloride 101, bicarbonate 20, BUN 44, creatinine 5.6, glucose 93, calcium 9.6, phosphorus 6.2, total protein 7.4, albumin 2.2. White count 10.2, hemoglobin 8.9, hematocrit 28.1, platelets 294,000. Differential on the white count 76 neutrophils, 1 band, 8 lymphs, 13 monos. ASSESSMENT AND PLAN: 1. End-stage renal disease. She is due for dialysis today. We will get her done with a 3-hour run on 3K dialysate. Blood pressure is low. She does not look like she has a whole lot of volume on board, so we may not be able to get much ultrafiltration. We used her tunneled catheter. We will then adjust going forward for any changes in her dialysis. 2. Peripheral vascular disease with a hot right foot. She is on broad-spectrum antibiotics. Cultures are pending at this point. Vascular evaluation undergoing. 3. Prior left rfefs-xmt-qlfz amputation. 4. Longstanding Crohn's with an ileostomy. 5. Very frail and debilitated patient. We will follow along in her care. <ELECTRONICALLY SIGNED> By: Jose Guzmán MD 08/24/19 [id number] Jose Guzmán MD /srinivas
== END 2019-07-31 18:12 | DRG 853 ==
LOC: HYPER 07:11 → 4W 16:05 → HYPER 16:26 → ICU 07-26 17:44 → 2N 07-30 01:36
PROVIDERS: Hospitalist; Internal Medicine Nephrology; Nurse Practitioner Acute Care; ADMIT Internal Medicine
PROC: 5A1D70Z Performance of Urinary Filtration, Intermittent, Less than 6 Hours Per Day (ICD-10-PCS; 2019-07-22)
PROC: B41D1ZZ Fluoroscopy of Aorta and Bilateral Lower Extremity Arteries using Low Osmolar Contrast (ICD-10-PCS; 2019-07-23)
PROC: B4181ZZ Fluoroscopy of Bilateral Renal Arteries using Low Osmolar Contrast (ICD-10-PCS; 2019-07-23)
PROC: 5A09357 Assistance with Respiratory Ventilation, Less than 24 Consecutive Hours, Continuous Positive Airway Pressure (ICD-10-PCS; 2019-07-27)
PROC: 5A1D70Z Performance of Urinary Filtration, Intermittent, Less than 6 Hours Per Day (ICD-10-PCS; 2019-07-27)
PROC: 0Y6P0Z1 Detachment at Right 1st Toe, High, Open Approach (ICD-10-PCS; principal; 2019-07-28)
PROC: 5A09357 Assistance with Respiratory Ventilation, Less than 24 Consecutive Hours, Continuous Positive Airway Pressure (ICD-10-PCS; 2019-07-28)
PROC: 5A1D70Z Performance of Urinary Filtration, Intermittent, Less than 6 Hours Per Day (ICD-10-PCS; 2019-07-29)
PROC: 5A09357 Assistance with Respiratory Ventilation, Less than 24 Consecutive Hours, Continuous Positive Airway Pressure (ICD-10-PCS; 2019-07-29)
PROC: 5A09357 Assistance with Respiratory Ventilation, Less than 24 Consecutive Hours, Continuous Positive Airway Pressure (ICD-10-PCS; 2019-07-30)
PROC: 5A1D70Z Performance of Urinary Filtration, Intermittent, Less than 6 Hours Per Day (ICD-10-PCS; 2019-07-31)
DX: A41.9 Sepsis, unspecified organism (principal); N18.6 End stage renal disease; R65.21 Severe sepsis with septic shock; L03.115 Cellulitis of right lower limb; K50.90 Crohn's disease, unspecified, without complications; E44.0 Moderate protein-calorie malnutrition; M86.8X8 Other osteomyelitis, other site; L02.611 Cutaneous abscess of right foot; Z68.1 Body mass index [BMI] 19.9 or less, adult; I73.9 Peripheral vascular disease, unspecified; D63.1 Anemia in chronic kidney disease; I95.9 Hypotension, unspecified; Z66 Do not resuscitate; R00.0 Tachycardia, unspecified; I48.91 Unspecified atrial fibrillation; Z77.22 Contact with and (suspected) exposure to environmental tobacco smoke (acute) (chronic); Z79.1 Long term (current) use of non-steroidal anti-inflammatories (NSAID); Z88.6 Allergy status to analgesic agent; Z87.891 Personal history of nicotine dependence; Z80.42 Family history of malignant neoplasm of prostate; Z89.512 Acquired absence of left leg below knee; Z90.49 Acquired absence of other specified parts of digestive tract; Z93.3 Colostomy status; Z79.01 Long term (current) use of anticoagulants
CPT/HCPCS: 10047; 10078; 10081; 10203; 10204; 32100; 50010; 50101; 50386; 50951; 56527; 57091; 57178; 62110; 62900; 70005

== ENCOUNTER 2019-08-11 13:48 | Inpatient (IN) | payer OTHER ==
[~2019-08-11] VITALS: Ht 157.5 cm; Wt 41.9 kg
[~2019-08-11 13:48] MED LIST: ASPIR 8181 M1 PO; AUGMENTIN 875-1 EACH PO; FLORINEF ACETA0.1 MG PO; GABAPENTIN 100100 MG PO; GYNE-LOTRIMIN-745 GM VAG; IBUPROFEN 200200 M1; MIDODRINE HCL 55 M1 PO; NEPHRO-VITE TA0.8 MG PO; OXYCODONE HCL 55 MG PO; PACERONE 200 M200 M1 PO; SENSIPAR 30 MG30 M1; VAN500AD IV; XARELTO2.5 MG PO; ZOSYN 3.3753.375 GM IV
[2019-08-11 18:34] LABS: HEMOGLOBIN 10.2 gm/dL (12.0-15.0)
[2019-08-11 18:36] LABS: HEMATOCRIT 33.6 % (37.0-47.0); MCH 24.2 pg (26.0-34.0); MCHC 30.3 g/dL (28.0-37.0); MCV 79.7 fL (80.0-100.0); PLATELET COUNT 554 thou/uL (150-400); RBC 4.21 mil/uL (4.20-5.00); RDW 19.5 % (10.5-14.5); WBC 15.3 thou/uL (4.0-11.0)
[2019-08-11 18:45] LABS: ALBUMIN 2.8 g/dL (3.4-5.0); CALCIUM 9.4 mg/dL (8.5-10.1); CREATININE 4.6 mg/dL (0.6-1.0); MAGNESIUM 1.7 mg/dL (1.8-2.4); PHOSPHORUS 5.5 mg/dL (2.5-4.9); POTASSIUM 3.8 mmol/L (3.5-5.1)
--- NOTE | 2019-08-11 19:09 | NUR ---
PT ARRIVED TO FLOOR DIRECT ADMIT FROM DR RADER'S OFFICE PER WC AT 1800. ADMISSION HX AND ASSESSMENT COMPLETED.DR ZABALA NOTIFIED,SAIDANP ROUNDED ON PT AND ORDERS NOTED.CONSULT CALLED TO SEVERAL DOCTORS. RECEIVED CALL FROM DR HERNANDEZ.ORDER RECEIVED.REPORT OFF TO NOC.
[2019-08-11 19:15] LABS: ABSOLUTE NEUTROPHILS 9.6 thou/uL (1.4-8.2); ANISOCYTOSIS 1+; POLYCHROMASIA OCCASIONAL
[2019-08-11 19:16] LABS: HYPOCHROMASIA SLIGHT; LARGE PLATELETS OCCASIONAL; MICROCYTES 1+
[2019-08-11 19:44] VITALS: BP 113/60
[2019-08-12 03:51] VITALS: BP 99/58
[2019-08-12 07:48] VITALS: BP 94/45
--- NOTE | 2019-08-12 09:45 | NUR ---
Pt is requesting renal diet be liberalized to regular diet. Will need approval from renal. Also recommend add phosp binder for persistant high phos levels.
--- NOTE | 2019-08-12 14:31 | NUR ---
INITIAL ASSESSMENT: Pt evaluated for d/c planning needs. Reviewed chart and spoke with nurse, pt and spouse. Pt lives in house with spouse and was independent with ADL's prior to previous hospitalization. Pt was hospitalized at [facility] the beginning of July and went to [facility] [place]. Pt is scheduled to be d/c from facility on Saturday. Pt is being evaluated by wound care. Asked transportation planner to fax referral to facility. Will remain available to assist as needed.
--- NOTE | 2019-08-12 16:09 | NUR ---
FAXED REFERRALTO [facility] SPOKE WITH JIMENA IN ADM SHE RECEIVED REFERRAL AND WILL FOLLOW PT WHILE HERE. DCP TO FOLLOW.
[2019-08-12 17:12] VITALS: BP 105/51
[2019-08-12 19:15] VITALS: BP 95/53
--- NOTE | 2019-08-12 19:33 | NUR ---
Assumed care of pt at 0700. Pt alert and oriented x4. C/o pain in right foot. Prn pain meds administered. IV antibiotics infusing. Dialysis MWF. IR procedure scheduled tomorrow. Consent signed and in chart. NPO after midnight. Colostomy in place. Fall precautions in place. Report given to tono TRAN.
--- NOTE | 2019-08-13 02:48 | NUR ---
ASSESSMENT COMPLETED.PT C/O PAIN,MANAGED WITH MED.NEW ORDER NOTED FOR IVF,BODY SERVICE TEAM MEMBER ON DUTY NOTIFIED,ORDR NOTED TO DC IVF,ORDER CARRIED OUT.DRSG TO HER R FOOT C/D/I.REPOSITIONED WHILE IN BED.COLOSTOMY WITH LIGHT GREEN STOOL IN THE BAG.PT NPO AT THIS TIME FOR A PROCEDURE IN THE AM.FALL PRECAUTIONS IN PLACE,CALL LIGHT WITHIN REACH.
[2019-08-13 04:03] VITALS: BP 96/56
[2019-08-13 05:48] LABS: HEMATOCRIT 34.5 % (37.0-47.0); HEMOGLOBIN 10.3 gm/dL (12.0-15.0); MCHC 29.8 g/dL (28.0-37.0); MCV 80.6 fL (80.0-100.0); RBC 4.29 mil/uL (4.20-5.00); RDW 19.7 % (10.5-14.5); WBC 12.5 thou/uL (4.0-11.0)
[2019-08-13 05:56] LABS: PLATELET COUNT 401 thou/uL (150-400)
[2019-08-13 06:30] LABS: ALBUMIN 2.5 g/dL (3.4-5.0); CALCIUM 9.3 mg/dL (8.5-10.1); CREATININE 3.1 mg/dL (0.6-1.0); PHOSPHORUS 3.9 mg/dL (2.5-4.9); POTASSIUM 3.2 mmol/L (3.5-5.1)
[2019-08-13 07:48] LABS: ABSOLUTE NEUTROPHILS 8.6 thou/uL (1.4-8.2)
[2019-08-13 07:50] LABS: ANISOCYTOSIS 2+
[2019-08-13 07:51] LABS: OVALOCYTES 1+
[2019-08-13 07:53] LABS: POLYCHROMASIA SLIGHT
[2019-08-13 08:31] VITALS: BP 03/61; BP 93/61
--- NOTE | 2019-08-13 15:28 | NUR ---
ASSUMED CARE OF PATIENT AT 0700. ARTERIOGRAM SCHEDULED TODAY. PT NPO SINCE 1200 MIDNIGHT. NO PO MEDICATIONS GIVEN DUE TO NPO STATUS. PT PAIN RATED A 10 ON A NUMERIC SCALE OF 1-10. FENTANYL ORDERED Q4 AND PT GIVEN MEDICATION AT 1012. NS D/C. WOUND CLEANSED WITH NS AND XEROFORM APPLIED ALONG WITH KERLIX AND SECURED WITH TAPE. BED IN LOW POSITION. CALL LIGHT WITHIN REACH. WILL CONTINUE TO MONITOR THE PT.
--- NOTE | 2019-08-13 18:21 | HC ---
[facility] [place] [address] CONSULTATION Name: SERENITY LOVELACE Room #: 421-P ADM IN M.R.#: [id number] Admission: 08/11/19 Attend Phys: Slim Holliday MD Discharge: Date of : 42 Report #: [id number] THIS REPORT FOR: //name// CC: Zack Bordenhens DATE OF SERVICE: 08/12/2019 CHIEF COMPLAINT: Necrosis of right second toe. HISTORY OF PRESENT ILLNESS: This is a 78-year-old female patient with whom I am familiar from recent hospitalization. She underwent a prior amputation of her right great toe. There was some residual portion of the first proximal phalanx. This was resected and primary closure was performed by Dr. Huynh on 07/28/2019. She has had continued pain; however, since that time, that was felt to be ischemic. She did undergo angiography by Dr. Tito Blackwell on 07/23/2019. At that point in time, a mild 30% right superficial femoral artery stenosis and right distal popliteal artery stenosis was not felt to be flow limiting since satisfactory right anterior tibial and peroneal artery runoff into the small disease, dorsalis pedis was noted. Dr. Blackwell did comment that there was some motion artifact associated with the procedure. The patient has great difficulty in lying still. We did discuss the possibility of additional angiography under anesthesia. She has now been admitted with persistent pain and some necrosis of the right second toe and I have been asked to see her with regard to ongoing wound care. PAST MEDICAL HISTORY: Positive for history of end-stage renal disease, requiring dialysis. The patient has a history of Crohn's disease, status post colectomy and colostomy. She had previous left leg BKA. MEDICATIONS: Include amiodarone, oxycodone, Florinef, clotrimazole. SOCIAL HISTORY: The patient is a former smoker. The patient admits to occasional alcohol use. FAMILY HISTORY: Noncontributory. REVIEW OF SYSTEMS: CONSTITUTIONAL: The patient denies fever, chills or weight loss. NEUROLOGICAL: The patient denies focal weakness, numbness or tingling. EYES: The patient denies visual changes, redness, or drainage. ENT: The patient denies earache, nasal drainage, sore throat. CARDIOVASCULAR: The patient denies chest pain, palpitations or diaphoresis. PULMONARY: The patient denies cough or shortness of breath. GASTROINTESTINAL: The patient denies nausea, vomiting, diarrhea, or abdominal [address] [address] CONSULTATION Name: SERENITY LOVELACE Room #: 421-P ADM IN [facility]#: [id number] Admission: 08/11/19 Attend Phys: Slim Holliday MD Discharge: Date of : 42 Report #: [id number] pain. ORTHOPEDIC: The patient complains of significant pain involving her right foot, ankle region as well as the incision site involving the previous surgery on the right great toe. LABORATORY DATA: Include sodium 135, potassium 3.8, chloride 99, CO2 of 25, BUN 17, creatinine 4.6, glucose of 94, albumin is 2.8. White blood cell count 15.3 with a hemoglobin of 10.2, hematocrit 33.6. Sed rate is 30. PHYSICAL EXAMINATION: VITAL SIGNS: At this time include temperature 36.4, pulse 62, respiratory rate of 16, blood pressure 94/45. GENERAL: This is a chronically ill-appearing female patient who appears to be in moderate distress. HEENT: Head normocephalic. Nose and throat are clear. NECK: Supple. LUNGS: Clear. ABDOMEN: Soft. EXTREMITIES: Examination of the right lower extremity demonstrates the surgically absent right great toe. The incision line is still mostly intact. There is now some necrosis; however, involving the right second toe involving the proximal interphalangeal joint and proximal phalanx. The patient's foot is warm to palpation. It is tender to palpation, but not overtly infected or cellulitic. CLINICAL IMPRESSION: 1. Necrosis of the right second toe following prior revision of right great toe amputation. 2. Significant peripheral arterial disease. 3. End-stage renal disease, requiring hemodialysis. RECOMMENDATIONS: At this point in time, patient I think may require revision and higher level amputation of portion of the foot. I have discussed this in detail with the patient and her son. She may not possess adequate vascularity to heal a transmetatarsal level amputation and with her ischemic pain she may be better suited with below-knee amputation. We have asked Interventional Radiology to take a look at her again and she is tentatively scheduled for additional right lower extremity angiography with anesthesia. If we are not able to improve flow and she continues to have ischemic pain, we will need to further entertain higher level amputation. I have discussed this in detail with the patient's son as well as the patient at the bedside. They voiced understanding and currently are in agreement with the plan of care. [address] [address] CONSULTATION Name: SERENITY LOVELACE Room #: 421-P ADM IN M.R.#: [id number] Admission: 08/11/19 Attend Phys: Slim Holliday MD Discharge: Date of : 42 Report #: [id number] I appreciate being asked to see her in consultation. <ELECTRONICALLY SIGNED> By: Griffin Franco MD 08/13/19 1821 1703 0215 Griffin Franco MD /nt
--- NOTE | 2019-08-13 18:23 | NUR ---
PT RETURNED FROM IR AT 1800 FROM HAVING A ARTERIOGRAM PERFORMED. NASAL CANNULA AT 2.0 LITERS AND O2 SATURATION AT 945. PT IS NPO. PT IS ADVISED TO REMAIN FLAT ON HER BACK UNTIL 1999. VITAL SIGNS ARE WITHIN NORMAL RANGE. PT HAS A EG INSERTED IN THE LEFT SIDE OF HER NECK. BED IN LOW POSITION AND HOB IN FLAT POSITION. CALL LIGHT WITHIN REACH. WILL CONTINUE TO MONITOR PT.
[2019-08-13 18:32] VITALS: BP 90/60
[2019-08-13 19:35] VITALS: BP 97/44
--- NOTE | 2019-08-14 02:22 | NUR ---
PT WAS STILL DROWSY FROM ANESTHESIA AT START OF SHIFT.PT'S BP AT START OF SHIFT LOW,BULL RIVETER ON DUTY NOTIFIED,ORDER NOTED TO GIVE MIDODRINE.ORDER NOTED TO ADVANCE PT'S DIET TO RENAL.PT ON 2L/NC.DRSG ON HER R FOOT C/D/I.PT RESTING ON HER BED AT THIS TIME.CALL LIGHT WITHIN REACH.
[2019-08-14 05:55] VITALS: BP 91/51
[2019-08-14 07:23] VITALS: BP 92/49
--- NOTE | 2019-08-14 12:18 | NUR ---
Assumed pt care at 7am.Pt in bed sleeping till breakfast time.Assessment completed.vss but low bp noted that was normal for pt.Midodrine given prior to going to hemodialysis. Fentanyl ivp given during dialysis for rt foot pain. Dr Agarwal here,order noted.Will continue to monitor.
--- NOTE | 2019-08-14 16:55 | NUR ---
CASE DISCUSSED WITH ATTENDING DR AND ORTHO IS TO SEE PT TO SEEE IF ANY ADDITIONAL SURGICAL INTERVENTION IS NEEDED. FOLLOWING TO ASSIST WITH DC PLANNING.
--- NOTE | 2019-08-14 18:49 | HC ---
[facility] [place] [address] CONSULTATION Name: SERENITY LOVELACE Room #: 421-P ADM IN M.R.#: [id number] Admission: 08/11/19 Attend Phys: Slim Holliday MD Discharge: Date of : 42 Report #: [id number] THIS REPORT FOR: //name// CC: Zack Baumann DATE OF SERVICE: 08/12/2019 INFECTIOUS DISEASE CONSULTATION. REASON FOR CONSULTATION: I was asked to evaluate concerning right foot nonhealing incision and ischemic second toe. HISTORY OF PRESENT ILLNESS: The patient is a 78-year-old with underlying peripheral vascular disease, end-stage renal disease, who underwent a right first toe amputation along with distal transmetatarsal amputation on 07/21/[address] King. 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 There was osteomyelitis to the distal phalanx and throughout the toe. She had significant arterial stenosis, thought reasonable enough, however, to heal this surgical area. There was plan for right distal anterior tibial artery intervention. She was dismissed on Augmentin and vancomycin. She followed up in the Wound Care Clinic yesterday noting worsening right foot. No fever, chills or sweats. Fair amount of pain in the distal foot. She has had a previous left BKA. She has a colostomy from a history of a sacral decubitus. No issues there at this point. She has end-stage renal disease with failed AV fistulas and grafts. She now has a right chest tunneled dialysis catheter. ALLERGIES: CODEINE. MEDICATIONS: As noted on her JAN, now on vancomycin and Zosyn. Also, amiodarone, oxycodone, Florinef, gabapentin, multivitamin, midodrine, aspirin, Xarelto, Sensipar. PAST MEDICAL HISTORY: End-stage renal disease; Crohn's disease, status post colectomy with colostomy, right lower quadrant; left BKA; right great toe amputation; right chest dialysis tunneled catheter. FAMILY HISTORY: Noncontributory. SOCIAL HISTORY: Past smoker, no significant alcohol intake. REVIEW OF SYSTEMS: Denies any cough or sputum production. No nausea or vomiting. Does not walk. Very weak. Otherwise, 10-point review was negative other than what is described above. [address] [address] CONSULTATION Name: SERENITY LOVELACE Room #: 421-P [facility] IN M.Lulu.#: [id number] Admission: 08/11/19 Attend Phys: Slim Holliday MD Discharge: Date of : 42 Report #: [id number] PHYSICAL EXAMINATION: VITAL SIGNS: She is afebrile, hemodynamically stable. GENERAL: Alert and cooperative. Small in stature, very thin. SKIN: Unremarkable other than what is described on her extremity examination. She did have a small pressure wound that was scarred over her sacrum. No palpable adenopathy. EYES: Without scleral icterus. MOUTH: Without mucositis. NECK: Supple. Right chest tunneled dialysis catheter site without tenderness or drainage. LUNGS: Clear. HEART: Regular, without murmur, gallop or rub. ABDOMEN: Soft and nontender with no hepatosplenomegaly or mass. The colostomy was functioning well. GENITOURINARY: External genitalia with no rash or wound. RECTAL: Not performed. EXTREMITIES: With left BKA stump, was well approximated. Right lower extremity with 1+ edema below the knee. There was distal foot incision over the dorsum first metatarsal region from her amputation. There was separation of the incision distally. There was minimal drainage. There is a small area of erythema. There was pale right second toe, which was markedly tender. There was small wound with no drainage. Pulses were not palpable in the popliteal or foot. NEUROLOGIC: Cranial nerves intact. Strength in her upper extremities was normal. Sensation diminished. Toes were significantly tender to touch. PSYCHIATRIC: Mood normal. LABORATORY STUDIES: Sed rate 30. Hemoglobin 10, white count 15, platelet count 554,000. Creatinine 4.6. Angio is pending. Differential showed 14% eosinophils. IMPRESSION: A 78-year-old with ischemia involving the right distal foot. The second toe has gangrene. She has been on antibiotic therapy since discharge. The eosinophilia I suspect is more related to her vancomycin use. So far, I do not see the need for this given her culture results. We will then continue with Zosyn. Await angiogram and hopefully open up her distal vasculature. I suspect the patient will require amputation of her second toe at a minimum. We will continue with Zosyn and wound care pending angiogram. <ELECTRONICALLY SIGNED> By: Anmol Noriega MD 08/14/19 1849 1043 2238 Anmol Noriega MD /nt
[2019-08-14 19:40] VITALS: BP 98/51
--- NOTE | 2019-08-15 00:52 | NUR ---
ASSESSMENT COMPLETED.DRSG ON HER R FOOT C/D/I WITH NO DRAINAGE.FEET ELEVATED COLOSTOMY INTACT WITH GREENISH LOOSE STOOL IN THE BAG.PT A LITTLE TEARFUL AT HS,EMOTIONAL SUPPORT GIVEN.PT RESTING COMFORTABLY ON HER BED AT THIS TIME.FALL PRECAUTIONS IN PLACE,CALL LIGHT WITHIN REACH.
[2019-08-15 04:55] VITALS: BP 139/87
[2019-08-15 07:50] VITALS: BP 97/54
--- NOTE | 2019-08-15 16:20 | NUR ---
Assumed pt care at 7am.Pt in bed resting. Repositioned q2h for comfort. Assisted with tray setup at all meals.Fair appetite.Assessment completed.vss but low bp noted.Midodrine given with am meds.Dr Barboza here,order noted. Pt spouse hare later this afternoon,wanted more information from Dr Barboza before taking pt to surgery in am.Answering service called and Dr Barboza discussed with spouse and both agreed to have pt scheduled for tomorrow at 8am.Pain med given x2 for rt foot with relief.Will continue to monitor.
[2019-08-15 17:04] VITALS: BP 105/54
[2019-08-15 20:50] VITALS: BP 98/54
[2019-08-16] VITALS (8 sets, daily range): BP systolic 101–125; BP diastolic 48–70
--- NOTE | 2019-08-16 01:55 | NUR ---
ASSESSMENT COMPLETED. PT ALERT AND ORIENTED. PAIN TO RLE. ORAL AND IV PAIN MEDS GIVEN. PT ALSO GETS RELIEF BY DANGLING FOOT. PT IS NPO AFTER MIDNOC FOR BKA IN THE AM. AFEBRILE. DENIES ANY N/V.COMPLETE BATH GIVEN. CONTINUES ON IV ABTS.PT IS ANURIC. COLOSTOMY WITH GOOD OUTPUT.ASSITED WITH REPOSITIONING. CALL LIGHT WITHIN REACH. WILL CONTINUE WITH POC TILL EOS.
[2019-08-16 04:54] LABS: HEMOGLOBIN 10.3 gm/dL (12.0-15.0); WBC 10.3 thou/uL (4.0-11.0)
[2019-08-16 04:58] LABS: HEMATOCRIT 33.7 % (37.0-47.0); MCH 24.7 pg (26.0-34.0); MCHC 30.6 g/dL (28.0-37.0); MCV 80.8 fL (80.0-100.0); RBC 4.18 mil/uL (4.20-5.00); RDW 18.6 % (10.5-14.5)
[2019-08-16 05:12] LABS: PLATELET COUNT 300 thou/uL (150-400)
[2019-08-16 05:35] LABS: CALCIUM 8.5 mg/dL (8.5-10.1); PHOSPHORUS 5.2 mg/dL (2.5-4.9); POTASSIUM 3.2 mmol/L (3.5-5.1)
[2019-08-16 05:45] LABS: CREATININE 4.6 mg/dL (0.6-1.0)
[2019-08-16 06:02] LABS: ABSOLUTE NEUTROPHILS 6.2 thou/uL (1.4-8.2); ANISOCYTOSIS 2+; LARGE PLATELETS FEW
[2019-08-16 06:03] LABS: BURR CELLS 3+; HYPOCHROMASIA 1+; MICROCYTES 1+
[2019-08-16 06:04] LABS: SCHISTOCYTES FEW
--- NOTE | 2019-08-16 18:30 | NUR ---
PT ASSESSED AT START OF SHIFT. WENT TO SURGERY FOR RT BKA. 350ML BLOOD LOSS AND HAS ONE UNIT BLOOD ON RESERVE IN CASE ORDERS LATER IF HGB DROPS. RT STUMP DSNG DRY AND INTACT W/ TERRIE WRAP. HEMOVAC DRAIN IN PLACE - NO DRAINAGE. PT W/ INTERMITTENT PAINS. IV FENTANYL W/ OXY GIVEN FOR BREAKTROUGH. PT DOSING IN BETWEEN BUT HAS INTERMITTENT SHOOTING PAIN AT TIMES. ATE WELL FOR DINNER.
--- NOTE | 2019-08-17 04:16 | NUR ---
ASSUMED CARE OF PT @1900 PT ASSESSED AT START OF SHIFT WITH C/O OF RIGHT STUMP PAIN. PAIN MEDS GIVEN SEE EMAR. DRESSING INTACT ON RT STUMP AND NO DRAINGE ON HEMOVAC. COLOSTOMY INTACT AND LIQUID STOOL NOTED. PT REPOSITIONED FOR COMFORT. ABX INFUSING. CALLS AND LET NEEDS KNOWN WILL CONT WITH POC TILL EOS
[2019-08-17 05:06] LABS: HEMATOCRIT 23.2 % (37.0-47.0)
[2019-08-17 05:10] LABS: HEMOGLOBIN 7.1 gm/dL (12.0-15.0)
[2019-08-17 05:25] VITALS: BP 109/61
[2019-08-17 05:30] LABS: POTASSIUM 3.6 mmol/L (3.5-5.1)
--- NOTE | 2019-08-17 08:48 | NUR ---
PATIENT HAD A RIGHT BKA YESTERDAY. WILL PLACE PATIENT ON HOLD UNTIL NEW ORDERS ARE RECEIVED.
--- NOTE | 2019-08-17 10:40 | NUR ---
Pt WENT TO OR FOR R BKA YESTERDAY WITH ORTHO. WILL NEED UPDATED PT ORDERS TO RESUME PT INTERVENTIONS WHEN Pt MEDICALLY APPROPRIATE TO PARTICIPATE WITH THERAPY SERVICES.
[2019-08-17 10:42] VITALS: BP 143/95
--- NOTE | 2019-08-17 14:23 | NUR ---
PATIENT SEEN BY DR. PRATT THIS DATE. PATIENT MAY BE A CANDIDATE FOR ACUTE REHAB. DR. PRATT REORDERED THERAPY AND PT/OT TO ATTEMPT TO SEE PATIENT THIS AFTERNOON. WILL NEED TO SEE HOW PATIENT TOLERATES THERAPY. IF APPROPRIATE AND PATIENT WOULD LIKE TO COME TO [facility] WILL SEEK AUTHORIZATION. THANK YOU FOR THIS REFERRAL.
[2019-08-17 16:20] VITALS: BP 108/53
--- NOTE | 2019-08-17 16:45 | NUR ---
FAXED CLINICAL UPDATE TO [facility] SPOKE WITH DAYNA IN ADM SHE RECEIVED UPDATE.
--- NOTE | 2019-08-17 20:14 | NUR ---
ASSUMED CARE AT 0700, SHIFT ASSESSMENT DONE, HAD DIALYSIS DONE TODAY, TOOK 0.7 L OFF. REPORTED SEVERE PAIN, PRN PAIN MEDS GIVEN WITH SOME RELIEF. RIGHT BKA DRESSING CHANGE DONE BY WOUND CARE TEAM. RECEIVING IV ANTIBIOTICS. WILL CONTINUE TO ASSESS AND ASSIST WITH ADLs NEEDED.
[2019-08-17 20:35] VITALS: BP 111/82
--- NOTE | 2019-08-18 02:18 | NUR ---
ASSUMED CARE OF PT @1900 PT ASSESSED AT START OF SHIFT WITH C/O OF PAIN IN RT STUMP PAIN MEDS GIVEN SEE EMAR. DRESSING INTACT IN RT STUMP. PT REPOSITIONED FOR COMFORT AND PILLOWS PLACED UNDERNEATH STUMP. WILL CONT WITH POC TILL EOS.
[2019-08-18 04:59] VITALS: BP 112/64
--- NOTE | 2019-08-18 07:46 | HC ---
[facility] [place] [address] CONSULTATION Name: SERENITY LOVELACE Room #: 421-P ADM IN M.R.#: [id number] Admission: 08/11/19 Attend Phys: Slim Holliday MD Discharge: Date of : 44 Report #: [id number] THIS REPORT FOR: //name// CC: Zack Bordenhens DATE OF SERVICE: 08/12/2019 REASON FOR CONSULTATION: End-stage renal disease. REASON FOR PRESENTATION: Shortness of breath. HISTORY OF PRESENT ILLNESS: A well-known patient to me. She is in end-stage renal disease, maintained on hemodialysis every Saturday, Saturday and Saturday. She had been hospitalized in the early part of July for lower extremity wound. She dialyzes with another facility. She has been battling with right foot wound and was admitted for evaluation of her nonhealing wound. She was evaluated in the Wound Clinic yesterday and decision was made to admit the patient for further evaluation. PAST MEDICAL HISTORY: Extensive and includes: 1. End-stage renal disease. 2. Peripheral vascular disease. 3. Osteomyelitis. 4. Chronic hypotension. 5. Right great toe amputation. 6. Left below-knee amputation. 7. Crohn's disease. 8. Colectomy. 9. Ileostomy. MEDICATIONS: 1. Renvela. 2. Nephro-Zofia. 3. Sulfasalazine. 4. Neurontin. 5. Plavix. ALLERGIES: CODEINE. FAMILY HISTORY: Negative for renal disease. SOCIAL HISTORY: . No drug or alcohol abuse. REVIEW OF SYSTEMS: [facility] [address] [place] [address] CONSULTATION Name: SERENITY LOVELACE Room #: 421-P ADM IN M.R.#: [id number] Admission: 08/11/19 Attend Phys: Slim Holliday MD Discharge: Date of : 42 Report #: [id number] GENERAL: Significant for fatigue and weakness. CARDIOVASCULAR: No chest pain or palpitation. NECK: Supple. PULMONARY: No cough or hemoptysis. GASTROINTESTINAL: No nausea or vomiting. GENITOURINARY: She makes no urine. MUSCULOSKELETAL: As per history of present illness. PHYSICAL EXAMINATION: GENERAL: She is afebrile, blood pressure 94/45. HEAD AND NECK: No jugular venous distention. CHEST: No crackles. CARDIOVASCULAR: No rub. ABDOMEN: Ileostomy. LOWER EXTREMITIES: Left below knee amputation. Right big toe amputation, with some erythema and cellulitic changes. LABORATORY DATA: Revealed a white blood cell count of 15.3. Sodium is 135, BUN is 17, creatinine is 4.6. Albumin is 2.8. IMPRESSION AND PLAN: 1. End-stage renal disease. 2. Ongoing right foot wound, osteo, cellulitis. 3. Atrial fibrillation. 4. Chronic hypertension. 5. Hemodialysis will be arranged for the patient today. 6. Defer the management of her ongoing wound issues, osteomyelitis to the admitting team. <ELECTRONICALLY SIGNED> By: Bianca Huerta MD 08/18/19 0746 0917 2139 Bianca Huerta MD /nt
[2019-08-18 08:00] VITALS: BP 98/56
[2019-08-18 16:40] VITALS: BP 106/61
[2019-08-18 16:47] VITALS: BP 99/57
--- NOTE | 2019-08-18 16:51 | NUR ---
RECEIVED CALL RADHA IVERSON LEAD DATA ENTRY OPERATOR. AUTHORIZATION DENIED. DIRECTOR EXPERIMENTAL MEDICINE FELT PATIENT WAS MORE APPROPRIATE FOR SKILLED AND WOULD BE UNABLE TO TOLERATE 3 HOURS OF REHAB A DAY. PEER TO PEER CAN BE COMPLETED. NUMBER TO CALL IS . THIS MUST BE COMPLETED BY 08/19/19 AT NOON. REFERENCE NUMBER IS [id number]. LEAD MINER BLASTING INFORMED.
--- NOTE | 2019-08-18 17:35 | NUR ---
INFORMED BY REHAB LIASION THAT 5N WAS DENIED BY INS. ASKED DC MICROSTRATEGY REPORTS DEVELOPER TO FAX UPDATE TO [facility] AND TO HVE THEM SEEK AUTHORIZATION [place].
[2019-08-18 19:08] VITALS: BP 114/59
--- NOTE | 2019-08-18 19:13 | NUR ---
Assumed patient care at 0715. Patients vital signs are stable. Dressing change completed as ordered, Museum Or Zoo Director was present with with new "stump shrinkers." Patient has struggled with pain to right lower extremity. New order received for Morphine IV push 4mg; this has been efecctive. POC followed. Appetite remains excellent. O2 at 2 liters per nc.
[2019-08-19 02:41] VITALS: BP 114/54
--- NOTE | 2019-08-19 04:02 | NUR ---
PT WAS REASS.VSS WAS WNL.DRESSING DRY AND CLEAN .PATIENT COMPLAIN OF PAIN AND WAS ADMINISTEDRED OXYCODONE WITH RELIEF.PT REPOSITIONED AND ZGUARD ADM ON BOTTOM.
[2019-08-19 04:20] VITALS: BP 94/46
--- NOTE | 2019-08-19 10:07 | PATH ---
[facility] [address] [place] [address] PATHOLOGY RPT PROCEDURE Name: SERENITY LOVELACE Room #: 421-P ADM IN M.R.#: [id number] Admission: 08/11/19 Date of : 42 Discharge: Report #: [id number] Path Case #: [id number] [facility] Accession Number: [id number] . 01 Material submitted: . knee - RIGHT BELOW THE KNEE AMPUTATION. Modifiers: right . 01 Clinical history: . Ischemic foot and osteomyelitis . 02 Diagnosis: Leg, right, below the knee amputation: - Skin and subcutaneous tissue showing marked ulceration along with a fibrinoid degeneration as well as gangrenous necrosis. - Acute inflammation extends into underlying bone associated with and chronic osteomyelitis as well as osteonecrosis. - Vessels showing calcific atherosclerosis with complete luminal narrowing. - Bone at surgical margin viable and unremarkable. - Skin at surgical margin viable. (IUV:jhonatan; 08/18/2019) MBR 08/18/2019 1358 Local . 02 Electronically signed: . Joyce Luke MD, Pathologist NPI- [id number] . 01 Gross description: . Received fresh in a red biohazard bag labeled "Serenity Lovelace, right below knee amputation" and consists of a right below the knee amputation specimen measuring 27.0 cm heel to proximal skin soft tissue margin and 22.3 cm heel to middle toe. The first toe is absent with a linear previous excision site closed with sutures measuring 7.6 cm. The remaining 4 toes show nails which are thickened, yellow-brown and irregular. The second and third toe are purple-pink and ischemic. Surrounding the previous excision, the skin is bajwa-brown and necrotic. The rest of the skin is bajwa-brown with no additional lesions. Protruding from the proximal margin is the fibula (8.8 cm in length and 1.2 cm diameter) and tibia (5.5 cm in length and 4.0 cm diameter). Both the skin soft tissue margin and bone margins appear grossly viable. The anterior and posterior tibial arteries display partially stenotic lumens. Gateman sections are submitted as follows: . A1: Skin soft tissue margin A2: Previous excision skin and second toe skin A3: Bone deep to previous excision A4: Anterior and posterior tibial arteries [place] [address] PATHOLOGY RPT PROCEDURE Name: SERENITY LOVELACE Room #: 421-P ADM IN M.R.#: [id number] Admission: 08/11/19 Date of : 44 Discharge: Report #: [id number] Path Case #: [id number] A5: Proximal bone marrow Cassettes A3-A5 will be submitted following decalcification (SDY; 08/17/2019) SYU/SYU 08/17/2019 1325 Local . 02 Pathologist provided ICD-10: L97.919, I96, M86.60, M87.9, I70.201 . 02 CPT . 659621, [id number] Specimen Comment: A courtesy copy of this report has been sent to Specimen Comment: [phone], , , . Specimen Comment: Report sent to ,DR ZABALA,DR RADER / DR BALDERRAMA Specimen Comment: Report sent to Performed at: [address] [facility] [address], [place], [place] [id number] MD Von Kellogg MD Phone: [phone] Performed at: [address] [facility] [address] [id number] MD Joyce Luke MD Phone: [phone]
--- NOTE | 2019-08-19 12:15 | NUR ---
FAXED CLINICAL UPDATE TO [facility] SPOKE WITH JIMENA IN INTAKE AND RECEIVED CONFIRMATION SHE WILL SUBMIT FOR AUTH. DP TO FOLLOW.
[2019-08-19 16:00] VITALS: BP 114/63
--- NOTE | 2019-08-19 18:00 | NUR ---
ASSUMED CARE OF PT AT 0700. PT WENT TO DIALYSIS AND 300 FLUID WAS REMOVED. WOUND CHANGE WAS DONE BY NOC NURSE DUE TO PTS PAIN. STUMP COMMUNICATIONS EXECUTIVE WAS NOT APPLIED. COLOSTOMY WAS CHANGED DUE TO LEAKAGE. PTS PAIN WAS CONTROLLED BY PAIN MEDICATIONS. VIEWED PTS RIGHT BUTTOCK AND NO OPEN WOUNDS. INSERTED PTS VAGINAL CREAM. PT TURNED Q2. FALL PRECAUTIONS IN PLACE. BED IN LOWEST POSITION. CALL LIGHT WITHIN REACH. WILL MONITOR PT AND GIVE REPORT TO NOC NURSE.
[2019-08-19 19:04] LABS: HEMATOCRIT 26.2 % (37.0-47.0); HEMOGLOBIN 8.3 gm/dL (12.0-15.0)
[2019-08-19 19:05] VITALS: BP 96/50
--- NOTE | 2019-08-20 03:48 | NUR ---
PT IS O/A X4.PT IS REPOSITIONING Q2.ZGUARD APPLID TO BOTTOM AND PAIN MEDICATION ADM (MORPHINE).PT DRESSING DRY AND CLEAN.PT WAS ORDEDERD FOOT IMMOBILISER FOR RLE BUT STAFFS UNABLE TO PUT IN PLACE.PT APPETITE IS EXCELLENT.TO CONTINUE POC TILL EOS.
[2019-08-20 04:02] VITALS: BP 93/57
--- NOTE | 2019-08-20 11:04 | HC ---
[facility] [place] [address] CONSULTATION Name: SERENITY LOVELACE Room #: 437-P ADM IN M.R.#: [id number] Admission: 08/11/19 Attend Phys: Slim Holliday MD Discharge: Date of : 42 Report #: [id number] THIS REPORT FOR: //name// CC: Zack Borednhens DATE OF SERVICE: 08/17/2019 HISTORY OF PRESENT ILLNESS: The patient is a 78-year-old -Iraqi female who was originally admitted on 08/11/2019 with severe peripheral vascular disease, wound, right foot. She had had a prior right great toe amputation, 07/20/2019. The patient has an old left below-knee amputation. With her right foot worsening, she underwent further evaluation, was noted to have osteomyelitis and secondary gangrene and ended up undergoing a matching right below-knee amputation on 08/16/2019. She is on IV antibiotics with Infectious Disease involved. She currently has the drain in place, she is being monitored for postoperative acute blood loss anemia. She has multiple medical comorbidities as noted below. We are following her in rehabilitation medicine consultation. PAST MEDICAL HISTORY: Includes end-stage renal disease, on hemodialysis; chronic hypotension. She has Crohn's disease and is status post colectomy and colostomy. She has a history of severe protein-calorie malnutrition, paroxysmal atrial fibrillation. MEDICATIONS: Please see the full medication listing. ALLERGIES: CODEINE. HABITS: No history of alcohol abuse. She is noted to be a former smoker. FAMILY HISTORY: Noncontributory. SOCIAL HISTORY: Lives with her , house ramped, used a wheelchair, was not on O2. She utilized a sliding board. apparently helped some with sliding board transfers. did the instrumental ADLs. She does have a prosthesis, but had not been using as she has had skin breakdown problems with the old below knee amputation. She follows with [facility] per her history. She notes that the wound area has healed. REVIEW OF SYSTEMS: No current complaints of chest pain, shortness of breath, abdominal discomfort. No headache. She notes overall generalized fatigue. No noted fever or chills. She has discomfort as expected involving the below-knee amputation. She has the prior colostomy. No change noted with bladder issues or bowel issues. [facility] [address] [place] [address] CONSULTATION Name: SERENITY LOVELACE Room #: 437-P [facility] IN M.R.#: [id number] Admission: 08/11/19 Attend Phys: Slim Holliday MD Discharge: Date of : 42 Report #: [id number] PHYSICAL EXAMINATION: GENERAL: A 78-year-old -Iraqi female, small statured, thin, no obvious distress. She is alert, soft spoken. VITAL SIGNS: Temperature 98.0, pulse 94, respirations 18, blood pressure 109/61. She is on nasal prong O2. HEENT: Facies are symmetric. EXTREMITIES: She has functional range of motion of the upper extremity, strength is probably a grade 3+ to 4-/5. DTRs are trace to 1. She has the ostomy in place on examination of her abdomen. On examining lower extremity, she does have the old left below knee amputation. She has good range of motion at the knee and the residual limb is without breakdown. Her right below knee amputation is dressed and she has the drain in place. Strength of that left lower extremity is probably a grade 4- to 3+/5. I was not able to adequately assess the right lower extremity with the dressing in place. ASSESSMENT: A 78-year-old female with the following problem list: 1. Severe peripheral vascular disease with osteomyelitis and secondary gangrene, now status post right below-knee amputation, 08/16/2019. 2. Prior left below knee amputation. 3. End-stage renal disease, on hemodialysis. 4. Crohn's disease, status post colectomy with colostomy. 5. Chronic hypotension. 6. Paroxysmal atrial fibrillation. 7. Protein-calorie malnutrition. PLAN: Therapy evaluations postoperatively I ordered. I asked the patient to have her bring in her old left below knee amputation prosthesis. This may help with basic transfers including sliding board transfers, which she was doing before with her 's assistance. She does have support at home and she certainly may benefit from an acute in-hospital inpatient rehabilitation stay as she further medically stabilizes. We will have the therapist work with her and we will be glad to follow along with you regarding her rehab therapy needs. <ELECTRONICALLY SIGNED> By: Tito Chavira MD 08/20/19 1104 [id number] Tito Chavira MD /[facility]
[2019-08-20 11:32] VITALS: BP 105/66
--- NOTE | 2019-08-20 14:35 | NUR ---
ASSUMMED CARE OF PT AT 0700. Q2 CHANGE TO LEFT AND RIGHT SIDE. DRESSING CHANGE OF THE R KNEE WITH NS, AQUACEL, ABD, KERLIX AND ABD. WOUND ON PTS BACK WAS INTACT WITH NO BLEEDING. PAIN CONTROL WITH MEDS AND REPOSITIONING. EMPTIED OSTOMY. ANTIBIOTICS WERE DISCONTINUED PER MD. FALL PRECAUTIONS IN PLACE. CALL LIGHT WITHIN REACH AND BED IN LOWEST POSITION. WILL CONTINUE TO MONITOR PT.
[2019-08-20 15:52] VITALS: BP 99/50
[2019-08-20 19:33] VITALS: BP 98/52
--- NOTE | 2019-08-21 00:55 | NUR ---
ASSUMED PT CARE AT 1915 ON 08/20/19. PT WAS ALERT WHEN INTRODCED TO ONCOMING STAFF. PT SHOWS IS WEAK. FALL PERCAUTION IN PLACE, BED IN LOWEST POSTION. CALL LIGHT IN REACH. SKIN INTACT BUT BLANCHABLE ON BUTTOCK, BLISTER NOTED ON RIGHT KNEE STILL INTACT. OSTOMY EMPTIED. PT REPOSITIONED NEEDED. PT DENIES PAIN. PT HAS POOR APPETITE. TEMPERATURE WAS 101.2. TYTENOL WAS ADMINISTERED, EFFECTIVE. PT LOOKING FORWARD TO BE DISCHARGED LATER IN THE DAY.
[2019-08-21 03:54] VITALS: BP 89/43
--- NOTE | 2019-08-21 08:39 | NUR ---
OSTOMY CARE NOTE; UNSURE HOW LONG CURRENT POUCH ON? PT STATES SEVERAL DAYS, CHANGED USING 2 PIECE SYSTEM MAURICE CUT TO FIT, STOMA PINK VIABLE BUDDED W/ SMALL AMT BROWN LOOSE STOOL, PERISTOMAL SKIN INTACT, COOPERATIVE W/ CARE, SUPPLIES PLACED AT , SYSTEMS TECHNOLOGIST INFORMED OF CARE
[2019-08-21 10:29] LABS: HEMATOCRIT 22.5 % (37.0-47.0); HEMOGLOBIN 7.1 gm/dL (12.0-15.0); MCH 25.6 pg (26.0-34.0); MCHC 31.5 g/dL (28.0-37.0); MCV 81.3 fL (80.0-100.0); RBC 2.77 mil/uL (4.20-5.00); RDW 17.8 % (10.5-14.5); WBC 7.4 thou/uL (4.0-11.0)
[2019-08-21 16:32] VITALS: BP 116/80
[2019-08-21 19:22] VITALS: BP 122/60
--- NOTE | 2019-08-21 20:24 | NUR ---
ASSUMED CARE OF PATIENT AT 0715, PATIENT ALERT AND ORIENTED. PATIENT C/O PAIN WITH RIGHT BKA, MORPHINE 4 MG IV GIVEN X 2 THIS SHIFT. OXYCODONE 1 TABLET GIVEN AND FLEXIRIL 10 MG GIVEN THIS SHIFT. PATIENT HAS LEFT HAND IV IN PLACE. PATIENT HAD DIALYSIS TODAY 500CC OFF. BLISTER NOTED AND REPORTED TO WOUND CARE. OSTOMY NURSE CHANGE COLSOTOMY BAG THIS AM. PATIENT REFUSED TO BE TRUNED DUE TO PAIN WITH RIGHT BKA. DISCHARGE ORDER IN FOR FACILITY, BUT ON HOLD DUE TO HEMG 7.1, MAY DISCHARGE TOMORROW. WAS AT BEDSIDE THIS AFTERNOON. PATIENTREFUSED DINNER, AND ATE VERY SMALL AMT TODAY. WILL CONTINUE TO MONITOR.
--- NOTE | 2019-08-22 03:16 | NUR ---
ASSUMED PT CARE AT 1915 ON 08/21/19. PT GRIMACES AND CRIES WHEN REPOSITIONED. PT REPOSITIONED WHEN NECCESSARY. BARRIER CREAM APPLIED. OSTOMY EMPTIED. NO DRAINAGE ON DRESSING RBKA INSCISION. DRESSING CHANGE DONE DURING SHIFT. FALL PRECAUTION IN PLACE. BED IN LOWEST POSITION. CALL LIGHT WITHIN REACH. PT LOOKING FORWARD TO DISCHARGE.
[2019-08-22 04:53] VITALS: BP 109/60
[2019-08-22 07:22] VITALS: BP 101/58
[2019-08-22 11:29] LABS: HEMATOCRIT 27.3 % (37.0-47.0); HEMOGLOBIN 8.4 gm/dL (12.0-15.0); MCH 25.3 pg (26.0-34.0); MCHC 30.7 g/dL (28.0-37.0); MCV 82.5 fL (80.0-100.0); RBC 3.31 mil/uL (4.20-5.00); RDW 17.7 % (10.5-14.5)
[2019-08-22 15:25] VITALS: BP 102/59
--- NOTE | 2019-08-22 17:26 | NUR ---
PT A&OX2-S. IV INTACT IN L HAND, DIALYSIS CATH INTACT IN R CHEST. R BKA DRSG CHANGED INCISION IS C/D/I WITH JOSE ARMANDO AND SUTURES. THERE IS A BLISTER ON THE RIGHT KNEE, PT'S SPOUSE REFUSES STUMP RIP AND GROOVE MACHINE OPERATOR TO BE PLACED AT THIS TIME. COLOSTOMY INTACT. WILL CONT POC
[2019-08-22 19:08] VITALS: BP 87/55
--- NOTE | 2019-08-23 03:16 | NUR ---
PATIENT ALERT AND ORIENTED X4. DENIES PAIN. DRESSING ON RBKA INTACT. NO SIGN OF DRAINAGE. SLEPT MOST OF THE NIGHT.
[2019-08-23 03:44] VITALS: BP 90/53
[2019-08-23 04:24] LABS: HEMOGLOBIN 7.5 gm/dL (12.0-15.0); MCH 26.4 pg (26.0-34.0); MCHC 32.5 g/dL (28.0-37.0); MCV 81.3 fL (80.0-100.0); RBC 2.82 mil/uL (4.20-5.00); RDW 17.5 % (10.5-14.5); WBC 7.2 thou/uL (4.0-11.0)
[2019-08-23 07:24] VITALS: BP 91/58
[2019-08-23 15:16] VITALS: BP 90/54
[2019-08-23 15:57] VITALS: BP 90/54
--- NOTE | 2019-08-23 17:41 | NUR ---
PT ASSESSED AT START OF SHIFT. PAIN CONTROL BETTER BUT STILL HAS INTERMITTENT PHANTOM SHOOTING PAIN. PT TURNED Q2HRS. NAPPED SOME THIS AFTERNOON. TEMP 98.9 AXILLARY. CXR RESULTS CALLED TO DR. SOTO.ORDERS NOTED. DR. LOTT CALLED TO CHECK ON PT RE RECONSULT FOR COUGH AND FEVER. ID WILL SEE TOMORROW. TEMP BETTER. HAS LOOSE NONPRODUCTIVE COUGH. WILL DIALYZE IN THE AM.
[2019-08-23 19:20] VITALS: BP 72/77
[2019-08-24 03:20] VITALS: BP 91/57
--- NOTE | 2019-08-24 03:41 | NUR ---
PATIENT ALERT AND ORIENTED X4. C/O PAIN, MED GIVEN. DRESSING ON R STUMP REPLACED. JOSE ARMANDO AND SUTURES INTACT. COLOSTOMY PATENT. SLEPT OFF AND ON DURING NIGHT.
[2019-08-24 05:22] LABS: HEMATOCRIT 24.1 % (37.0-47.0); HEMOGLOBIN 7.4 gm/dL (12.0-15.0); MCH 25.3 pg (26.0-34.0); MCHC 30.9 g/dL (28.0-37.0); MCV 82.1 fL (80.0-100.0); RBC 2.93 mil/uL (4.20-5.00); RDW 17.4 % (10.5-14.5); WBC 8.5 thou/uL (4.0-11.0)
[2019-08-24 05:36] LABS: ALBUMIN 1.9 g/dL (3.4-5.0); CALCIUM 9.1 mg/dL (8.5-10.1); CREATININE 6.2 mg/dL (0.6-1.0); PHOSPHORUS 5.7 mg/dL (2.5-4.9); POTASSIUM 3.3 mmol/L (3.5-5.1)
[2019-08-24 08:28] VITALS: BP 94/56
--- NOTE | 2019-08-24 13:39 | NUR ---
SPOKE WITH JIMENA IN ADM AT [facility] THAT PT WILL NOT DISCHARGE TODAY. FAXED CLINICAL UPDATE AND SHE WILL NEED TO RESUBMIT FOR AUTH.
--- NOTE | 2019-08-24 13:53 | NUR ---
Followup: pt with new right BKA on 08/16, and prior left BKA few years ago. Dialysis pt. Eating variable amounts 20-100%. Visit during lunch today, still eating and drank 100% of nepro odjso=328 luciana and 20g protein. Food preferences provided. Need new baseline wt following amputation. Low nutrition risk with appropriate nutrition interventions in place.
--- NOTE | 2019-08-24 15:11 | NUR ---
DR Mariama HERNANDEZ WANTS RESP TO GET A SPUTUM C&S AND TO REPEAT A CXR IN AM. HE IS CONCERNED RELATED TO A TEMP OF 102 THIS WEEKEND AND CONCERNED SHE MAY HAVE AN INFECTIOUS PROCESS IN HER CHEST. CASE DISCUSSED WITH DR SOTO ALSO.
[2019-08-24 17:50] VITALS: BP 92/46
--- NOTE | 2019-08-24 20:24 | NUR ---
ASSUMED CARE AT 0700, SHIFT ASSESMENT DONE, MEDS GIVEN, VSS. WENT FOR DIALYSIS THIS AM, 1L WAS TAKEN OFF. CAME BACK AT 12 PM. REPROTED PAIN, PRN PAIN AND MUSCLE SPASM MED GIVEN WITH SOME RELIEF. DRESSING CHANGE TO RIGHT BKA DONE PER ORDER. WILL CONTINUE TO ASSESS AND ASSIST WITH ADLs NEEDED.
[2019-08-24 21:20] VITALS: BP 81/46
[2019-08-25 03:40] VITALS: BP 82/43
--- NOTE | 2019-08-25 04:06 | NUR ---
PATIENT ALERT AND ORIENTED X4. DENIED PAIN FOR THIS REVENUE TAX SPECIALIST. BEDREST. SLEPT MOST OF NIGHT.
[2019-08-25 07:26] VITALS: BP 90/50
[2019-08-25 10:02] LABS: HEMATOCRIT 30.9 % (37.0-47.0); MCH 25.1 pg (26.0-34.0); MCHC 30.6 g/dL (28.0-37.0); MCV 82.2 fL (80.0-100.0); RBC 3.76 mil/uL (4.20-5.00); RDW 17.4 % (10.5-14.5)
[2019-08-25 10:17] LABS: HEMOGLOBIN 9.5 gm/dL (12.0-15.0)
--- NOTE | 2019-08-25 15:45 | NUR ---
ASSUMED CARE OF PT AT 0700. PT WAS A&O X2. PT PAIN UNDER CONTROL WITH MEDS AND REPOSITIONING. WOUND DRESSING LOOKS CLEAN AND INTACT WITH NO DRAINAGE PRESENT. PT IS TAKING SUPPLEMENTS 2X DAILY. COLOSTOMY CHANGED. FALL PRECAUTIONS IN PLACE. BED IN LOWEST POSITION. PT HAD XRAY OF CHEST PERFORMED TODAY. WILL CONTINUE TO MONITOR PT.
--- NOTE | 2019-08-25 16:59 | NUR ---
CT OF CHEST SHOWS LARGE PLEURAL EFFUSION ON RIGHT SIDE. AWAITING NEXT STEPS. ONCE MEDICALLY STABLE PLAN WILL BE TO TRANSFER TO SNF AT [facility]. S/W JIMENA IN ADMISSIONS THERE & WITH REJI FROM [facility] TO UPDATE BOTH.
[2019-08-25 19:04] VITALS: BP 100/58
[2019-08-26 04:09] VITALS: BP 94/49
--- NOTE | 2019-08-26 04:11 | NUR ---
Assumed pt care at 1900. A/O 2-3,able to make needs known. C/o pain to buttocks, repositioned every 2 hrs and pain medication given as ordered with relief reported. Pt's IV dislodged, re-inserted with 3 attempts on LUE. Colostomy intact with liquidy light brown stool.Pt is anuric. Has a right chest tesio. Dressing on right stump C/D/I.Fall precautions in place,resting without distress,02 on @ 2L/NC. Will continue to monitor pt.
[2019-08-26 05:16] LABS: HEMATOCRIT 23.2 % (37.0-47.0); MCH 25.1 pg (26.0-34.0); MCHC 31.3 g/dL (28.0-37.0); MCV 80.2 fL (80.0-100.0); RBC 2.89 mil/uL (4.20-5.00); WBC 6.7 thou/uL (4.0-11.0)
[2019-08-26 05:19] LABS: HEMOGLOBIN 7.3 gm/dL (12.0-15.0)
--- NOTE | 2019-08-26 05:38 | NUR ---
LAB CALLED AT 0518 TO REPORT HGB CHANGE. THE NEW HGB IS 7.3. NURSE PRACTIONER SPEECH THERAPIST WAS NOTIFIED. WILL MONITOR PATIENT FOR ANY CHANGES. PT HX OF TRANFUSION 9 DAYS AGO.
[2019-08-26 07:55] VITALS: BP 103/80
--- NOTE | 2019-08-26 14:14 | 2DMMODE ---
[facility] [address] [place] [address] 2 D/M-MODE ECHOCARDIOGRAM Name: SERENITY LOVELACE Room #: 437-P ADM IN M.R.#: [id number] Admission: 08/11/19 Attend Phys: Slim Holliday MD Discharge: Date of : 42 Report #: [id number] THIS REPORT FOR: //name// APPROVED REPORT Study performed: 08/26/2019 13:15:15 EXAM: Comprehensive 2D, Doppler, and color-flow Echocardiogram Patient Location: Bedside Room #: 437 Status: routine BSA: 1.41 HR: 79 bpm BP: 103/80 mmHg Rhythm: Sinus arrhythmia Other Information Study Quality: Good/Low parasternal window Indications Congestive Heart Failure Hx: Afib, PVD, left BKA. 2D Dimensions RVDd: 44.81 mm IVSd: 8.56 (7-11mm) LVOT Diam: 19.97 (18-24mm) LVDd: 41.92 mm PWd: 6.58 (7-11mm) LVDs: 39.06 (25-40mm) Aortic Root: 34.21 mm Volumes Left Atrial Volume (Systole) Single Plane 4CH: 65.44 mL Single Plane 2CH: 92.81 mL LA ESV Index: 58.00 mL/m2 Aortic Valve AoV Peak Ozzie.: 1.57 m/s AO Peak Gr.: 9.84 mmHg LVOT Max P.20 mmHg LVOT Max V: 1.24 m/s ELIANE Vmax: 2.48 cm2 Mitral Valve E/A Ratio: 0.8 MV Decel. Time: 306.66 ms [facility] [address] [place] [address] 2 D/M-MODE ECHOCARDIOGRAM Name: SERENITY LOVELACE Room #: 437-P ADM IN .R.#: [id number] Admission: 08/11/19 Attend Phys: Slim Holliday MD Discharge: Date of : 42 Report #: [id number] E Max Ozzie.: 0.77 m/s MV A Ozzie.: 0.95 m/s MV PHT: 88.93 ms IVRT: 72.66 ms Pulmonary Valve PV Peak Ozzie.: 0.73 m/s PV Peak Gr.: 2.11 mmHg Tricuspid Valve TR Peak Ozzie.: 3.08 m/s RAP Estimate: 10.00 mmHg TR Peak Gr.: 38.00 mmHg PA Pressure: 48.00 mmHg Left Ventricle The left ventricle is normal size. Regional wall motion abnormalities are noted with significant inferoseptal wall hypokinesis. There is normal left ventricular wall thickness. Left ventricular systolic function is moderately decreased. LVEF is 35-40%. Mild diastolic dysfunction is present (impaired relaxation pattern). Right Ventricle Right ventricle is mildly dilated. The right ventricular systolic function is normal. Atria Left atrium is severely dilated. Right atrium is severely dilated. Aortic Valve The aortic valve is normal in structure. No aortic regurgitation is present. There is no aortic valvular stenosis. Mitral Valve Mitral valve leaflets are mildly thickened. Mild mitral annular calcification. Moderate mitral regurgitation. No evidence of mitral valve stenosis. Tricuspid Valve The tricuspid valve is normal in structure. Moderate to severe tricuspid regurgitation. Estimated PAP is 50mmHg. Pulmonic Valve The pulmonary valve is normal in structure. Trace pulmonic regurgitation. Great Vessels [facility] [address] [place] [address] 2 D/M-MODE ECHOCARDIOGRAM Name: SERENITY LOVELACE Room #: 437-P ADM IN M.R.#: [id number] Admission: 08/11/19 Attend Phys: Slim Holliday MD Discharge: Date of : 42 Report #: [id number] The aortic root is normal in size. Ascending aorta is not well visualized. IVC is normal in size and collapses <50% with inspiration. Pericardium There is no pericardial effusion. Right pleural effusion noted. <Conclusion> The left ventricle is normal size. LVEF is 35-40%. Regional wall motion abnormalities are noted with significant inferoseptal wall hypokinesis. Right ventricle is mildly dilated. Left atrium is severely dilated. Right atrium is severely dilated. Mitral valve leaflets are mildly thickened. Mild mitral annular calcification. Moderate mitral regurgitation. The tricuspid valve is normal in structure. Moderate to severe tricuspid regurgitation. Estimated PAP is 50mmHg. The pulmonary valve is normal in structure. Trace pulmonic regurgitation. Right pleural effusion noted. <ELECTRONICALLY SIGNED> By: Surya Baird MD 08/26/194 13 13 Surya Baird MD /INF
--- NOTE | 2019-08-26 15:55 | NUR ---
PT IS GETING DIALYSIS TODAY. ALERT TO SELF WITH SOME CONFUSING. REORIENTATION TO SITUATION. DIALYSIS TODAY WITH DIALYSIS NURSE. CREAM TO COCCYX. AREA FAMILY AT [facility]. BLOOD SUGARS DONE NO INSULIN NEEDED AT THIS TIME. COLOSTOMY BAG. NO COMPLAINTS OF PAIN NOTED. COUGH NON PRODUCTIVE COUGH NOTED. PULMONARY CONSULT NOTIFIED TODAY. WILL CONTINUE TO ASESS AND MONITOR PER NURSING
[2019-08-26 20:15] VITALS: BP 85/30
[2019-08-26 21:29] VITALS: BP 82/42
[2019-08-27 03:15] VITALS: BP 98/46
--- NOTE | 2019-08-27 05:41 | NUR ---
ASSUMED Pt CARE AT BEGINNING OF SHIFT. BP WAS LOW SECONDARY TO DIALYSIS. Pt WAS ASYMPTOMATIC AND DENIED ANY DIZZINES. ALL OTHER VS WERE STABLE. Pt STATES SHE IS IN CONSTANT PAIN. REPOSITIONING AND PAIN MEDICATIONS PROVIDES SOME RELIEF. Pt IS NPO p MIDNIGHT FOR A PROCEDURE IN THE MORNING. Pt VOICES PAIN HER ONLY CONCERN AT THE MOMENT. REPOSITIONED AND GIVEN MEDICATIONS. WILL CONTINUE TO MONITOR.
[2019-08-27 07:05] VITALS: BP 82/48
[2019-08-27 08:06] LABS: APTT 35.3 Seconds (24.5-32.8); INR 1.2; PROTIME 12.5 Seconds (9.3-11.4)
[2019-08-27 10:48] LABS: CLARITY HAZY; COLOR YELLOW; SOURCE THORACENTESIS; TOTAL VOLUME 80 mL
[2019-08-27 11:18] LABS: BF NUCLEATED CELLS 296; BF RBC 872
[2019-08-27 12:05] LABS: BF MACROPHAGE 43; BF NEUTROPHILS 18
--- NOTE | 2019-08-27 13:36 | NUR ---
ASSUMED CARE OF PT AT 1300. PT WAS NPO IN THE AM DUE TO ULTRASOUND @0853.PTS BP HAS BEEN LOW. BP MEDICATION HAS BEEN GIVEN. WOUND DRESSING CLEAN, DRY AND INTACT. PAIN UNDER CONTROL WITH PAIN MEDS. PT IS A&OX4. FALL PRECAUTIONS IN PLACE. PT IS IN THE LOWEST POSITION. CALL LIGHT WITHIN REACH. WILL CONTINUE TO MONITOR THE PT.
--- NOTE | 2019-08-27 15:17 | NUR ---
FAXED CLINICAL UPDATE TO [facility] RECEIVED CONFIRMATION AND SPOKE WITH JIMENA IN ADM SHE RECEIVED UPDATE AND IS SUBMITTING FOR AUTH.
[2019-08-27 17:17] VITALS: BP 90/62
[2019-08-27 19:35] VITALS: BP 91/48
[2019-08-28 04:10] VITALS: BP 90/56
--- NOTE | 2019-08-28 05:58 | NUR ---
PATIENT ALERT AND ORIENTED X4. C/O PAIN. MED GIVEN. APPEARED TO BE ASLEEP MOST OF NIGHT BUT STATES SHE WAS AWAKE MOST OF NIGHT. DID NOT CALL OUT FOR ANY PAIN MED MOST OF THE NIGHT. COLOSTOMY INTACT. JOCELIN AMPUTEE, WITH RIGHT SIDR=E THE NEWEST. DRESSING ON THE R IS D/I.
[2019-08-28 07:30] VITALS: BP 96/64
--- NOTE | 2019-08-28 08:01 | NUR ---
PATIENT STARTING DIAYLSIS AT THIS TIME WILL HOLD MEDS UNTIL COMPLETED PT SLEEPING NO PAIN OR RESP DISTRESS NOTED
[2019-08-28 08:14] LABS: HEMOGLOBIN 7.2 gm/dL (12.0-15.0); MCH 25.1 pg (26.0-34.0); MCHC 31.3 g/dL (28.0-37.0); MCV 80.2 fL (80.0-100.0); RBC 2.87 mil/uL (4.20-5.00); RDW 17.6 % (10.5-14.5)
[2019-08-28 08:23] LABS: SOURCE THORACENTESIS
[2019-08-28 08:24] LABS: CREATININE 3.6 mg/dL (0.6-1.0)
[2019-08-28 08:33] LABS: POTASSIUM 2.8 mmol/L (3.5-5.1)
--- NOTE | 2019-08-28 15:18 | NUR ---
IF PT SHOULD DISCHARGE OVER WEEKEND TO ON LICENSE OF [facility] FAX DC ORDERS/SUMMARY TO [phone] AND CALL REPORT TOO [phone] AND SET UP TRANSPORT.
[2019-08-28 16:08] LABS: BODY FLUID ALBUMIN 1.7 g/dL (()); BODY FLUID AMYLASE 18 U/L (()); BODY FLUID GLUCOSE 86 mg/dL (()); BODY FLUID LDH 76 IU/L (()); BODY FLUID PROTEIN 3.2 g/dL (())
[2019-08-28 16:24] VITALS: BP 105/62
[2019-08-28 16:31] LABS: CALCIUM 8.8 mg/dL (8.5-10.1); MAGNESIUM 1.8 mg/dL (1.8-2.4); POTASSIUM 3.3 mmol/L (3.5-5.1)
[2019-08-28 16:32] LABS: CREATININE 1.6 mg/dL (0.6-1.0)
--- NOTE | 2019-08-28 18:35 | NUR ---
PT HAS WORKED WITH THERAPY. ATE MEALS AND DRANK SUPPLEMENTS. HAD DIAYLSIS TODAY 1 LITER REMOVED. GAVE KCL PO XS 2 . PT HAD VIT B12 SHOT. TREATMENT ORDERED. DAUGHTER AND IN ROOM.
[2019-08-28 19:01] VITALS: BP 104/66
--- NOTE | 2019-08-28 19:21 | NUR ---
PATIENT'S KCL = 3.3 GAVE KCL PO AT 1730 PM
--- NOTE | 2019-08-29 02:45 | NUR ---
PATIENT ALERT AND ORIENTED X4. PATIENT DID NOT WANT HER DRESSING CHANGED, REMAINS DRY AND INTACT. COLOSTOMY CARE DONE. 2LNC INTACT W/O SOA. MEDICATED FOR PAIN PRN WITH GOOD RESULTS. DRESSING TO RIGHT BKA DRY AND INTACT. PATIENTS POTASSIUM LEVEL 3.3 - WILL HAVE DRAW IN AM. RESTING QUIETLY.
[2019-08-29 03:56] VITALS: BP 87/54
[2019-08-29 07:20] VITALS: BP 84/50
--- NOTE | 2019-08-29 13:36 | NUR ---
ASSUMED CARE OF PT AT 0700. POTASSIUM WAS 3.3 ON 08/27. REDRAWN THIS AM AND POTASSIUM LEVELS ARE NOW 4.9. CHANGED DRESSING ON SACRUM WITH NS AND APPLIED SILVERDONE/ MORPHINE AND APPLIED A SACRAL BORDERED FOAM. BKA DRESSING CHANGED BY PHYSICIAN ON 08/29/2019. UNABLE TO CHANGE DRESSIG ABOVE THE R KNEE DUE TO KERLIX WRAP BY PHYSICIAN. 2L NASAL CANNULA REFUSED BY PT. FALL PRECAUTIONS IN PLACE. CALL LIGHT WITHIN REACH. BED IN LOWEST POSITION WITH BED ALARM ON. WILL CONTINUE TO MONITOR THE PT.
[2019-08-29 16:20] VITALS: BP 85/43
[2019-08-29 20:00] VITALS: BP 92/52
[2019-08-30 04:35] VITALS: BP 96/58
--- NOTE | 2019-08-30 06:36 | NUR ---
PT IN IS O/A X4.PAIN MGT WITH OXYCODONE.DRESSING D/C/I.PT PENDING LAB CULTURE FOR THORACENTESIS.PT IS DUE FOR DIALYSIS TOMORROW.PT IS Q2H.COLOSTOMY CHANGED.O2/NC/2L IN PLACE.CONTINUE POC TILL EOS
[2019-08-30 08:10] VITALS: BP 96/53
--- NOTE | 2019-08-30 10:44 | NUR ---
ASSUMED CARE OF PT AT 0700. CHANGED PTS SACRUM DRESSING. CLEAN, DRY AND INTACT. PAIN UNDER CONTROL THROUGH PAIN MEDS. NASAL CANNULA ON PT SET AT 2.0 LITERS. COLOSTOMY EMPTIED. DRESSINGS ON R BKA AND ABOVE ARE CLEAN DRY AND INTACT. FALL PRECAUTIONS IN PLACE. BED IN LOWEST POSITION. CALL LIGHT WITHIN REACH. WILL CONTINUE TO MONITOR PT.
[2019-08-30 16:16] VITALS: BP 91/53
[2019-08-30 19:33] VITALS: BP 109/64
[2019-08-30 20:24] VITALS: BP 109/64
--- NOTE | 2019-08-31 03:02 | NUR ---
PT APPEARED TO BE IN PAIN BY GRIMACING AND FROWNING. ADMINISTERED SILVER SULFADIAZINE/MORPHINE CREAM ON PtS L BUTTOCK WOUND. BARRIER PAD AND OLD DRESSING WERE SOAKED IN CLEAR/YELLOW DRAINAGE. AREA CLEANED, TREATED AND NEW DRESSING PAD APPLIED. Pt STATED PAIN AT A 9/10. WILL CONTINUE TO MONITOR AND FOLLOW PLAN OF CARE.
--- NOTE | 2019-08-31 04:26 | NUR ---
ASSUMED CARE OF Pt AT APPROX. 1999. ASSESSMENT CHARTED. MEDS GIVEN PER JAN. Pt IS A&OX4,VS WNL FOR Pt. O2 SATS ARE 91% ON RA. O2 AVAILABLE NEEDED, 2L VIA NASAL CANNULA. Pt REMAINS ON BEDREST AND IS TO BE TURNED Q2 HRS. Pt VOICES A PAIN LEVEL OF 8/10 ON HER R KNEE STUMP, AND 9/10 ON HER SACRUM. WOUND CARE DONE PER NURSING ORDERS. Pt CONTINUES TO HAVE GOOD OUTPUT VIA COLOSTOMY. Pt WILL CONTINUE TO BE MONITORED AND TREATED FOR PAIN. Pt TO RECIEVE DIALYSIS TODAY 08/31/19. FALL PRECAUTIONS IN PLACE, CALL LIGHT WITHIN REACH, FREQUENT ROUNDING DONE THROUGH SHIFT.
[2019-08-31 05:04] LABS: HEMATOCRIT 24.5 % (37.0-47.0); HEMOGLOBIN 7.5 gm/dL (12.0-15.0); MCH 24.5 pg (26.0-34.0); MCHC 30.7 g/dL (28.0-37.0); MCV 79.8 fL (80.0-100.0); RBC 3.07 mil/uL (4.20-5.00); RDW 18.1 % (10.5-14.5); WBC 11.6 thou/uL (4.0-11.0)
[2019-08-31 05:23] LABS: CALCIUM 8.4 mg/dL (8.5-10.1); POTASSIUM 3.5 mmol/L (3.5-5.1)
[2019-08-31 05:30] LABS: CREATININE 5.2 mg/dL (0.6-1.0)
[2019-08-31 07:25] VITALS: BP 110/62
--- NOTE | 2019-08-31 08:26 | NUR ---
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 Hemodialysis today. Discharge pending soon, pt has had pneumonia. Eating 75-100% of meals and drinking up to 2 nepro supplements per day. Severe Protein calorie malnutrition is stable as nutrition needs being met. Need new baseline wt. Low nutrition risk
--- NOTE | 2019-08-31 08:32 | NUR ---
OSTOMY CARE; POUCH EDGES LOOSE, NEW POUCH MAURICE 2 PIECE SYSTEM W/ ADAPT RING APPLIED, STOMA PINK VIABLE BUDDED W/ LOOSE BROWN STOOL NOTED, PERISTOMAL SKIN INTACT, COOPERATIVE W/ CARE, SUPPLIES AT BS, WILL CONT TO FOLLOW PRN
--- NOTE | 2019-08-31 08:55 | NUR ---
WOUND CARE NOTE; PT UP IN CHAIR, RIGHT KNEE WOUND CLEANSED W/ NS, NO STING SKIN PREP APPLIED, LEFT OPEN TO AIR PER ORDERS, WOUND MEASUREMENTS IN PROCESS INTERVENTION, NO DRAINAGE, PINK VIABLE TISSUE PRESENT 90% OF WOUND, SMALL AREA ESCHAR CENTER OF WOUND, HEALING, COOPERATIVE W/ CARE, [employer] RESOURCE SPECIALIST INFORMED OF CARE. WILL ASSESS OTHER WOUNDS WHEN WOUND DR MAKES ROUNDS TODAY
[2019-08-31] MEDS ORDERED: PACERONE 200 M200 M1 PO (10:54)
[2019-08-31] MEDS ORDERED: B12INJ SUBQ (10:55)
[2019-08-31] MEDS ORDERED: KEFLEX500 M2 PO (10:57)
--- NOTE | 2019-08-31 11:08 | PATH ---
[facility] [address] [place] [address] PATHOLOGY RPT PROCEDURE Name: SERENITY LOVELACE Room #: 437-P ADM IN M.R.#: [id number] Admission: 08/11/19 Date of : 44 Discharge: Report #: [id number] Path Case #: [id number] Note [facility] Accession Number: [id number] TESTS RESULT FLAG UNITS REF RANGE LAB Clinician Provided Cytology Information No. of containers..01 Other (Miscellaneous) Source: THORACENTESIS DIAGNOSIS: THORACENTESIS NEGATIVE FOR MALIGNANT EPITHELIAL CELLS. REACTIVE MESOTHELIAL CELLS ARE PRESENT. SCANT CELLULARITY. RARE LYMPHOCYTES PRESENT IN THE BACKGROUND. Pathologist ICD10: 02 M62.262 Signed out by: Joyce Luke MD, Pathologist NPI- [id number] Performed by: Sharron Zapata Teletypist ([facility]) Gross description: 01 15 ML, YELLOW, CLEAR /LCS 11/17/1840 0000 Local FLAG LEGEND: L-Low Normal,H-High Normal,LL-Alert Low,HH-Alert High <-Panic Low,>-Panic High,A-Abnormal,AA-Critical Abnormal Performed at: [address] [place] [address] Von Kellogg MD, [address] [place] [id number] Joyce Luke MD, Specimen Comment: A courtesy copy of this report has been sent to Specimen Comment: [phone]. Specimen Comment: Report sent to Performed at: [address], [place], [place] [id number] MD Von Kellogg MD Phone: [phone]
--- NOTE | 2019-08-31 13:55 | NUR ---
PT WAS TO DISCHARGE TO [facility] HC OF OP FAXED DC ORDERS/SUMMARY TO FACILITY SPOKE WITH JIMENA IN ADM SHE RECEIVED DC ORDERS AND ARRANGED TRANSPORT FOR 1430 TODAY AND PT'S DTR (STAMELIDA) NOTIFIED OF DC AND TIME OF TRANSPORT, BUT PT HAS NOT HAVE DIALYSIS OF 1400 SO JIMENA FROM [facility] WILL NOT TAKE A ADMIT THAT LATE RIGHT AFTER DIALYSIS ANY PT WILL DISCHARGE TOMORROW 09/01 TRANSPORT ARRANGED FOR 1000. I NOTIFIED PT'S DTR (STASI) OF CHANGE IN DISCHARGE PLANS AND SHE AWARE OF DC TOMORROW AT 1000. UNIT NOTIFIED OF CHANGE IN DISCHARGE. DP TO FOLLOW.
--- NOTE | 2019-08-31 16:58 | NUR ---
PT IS IN DIAYLSIS AT THIS TIME. TO DISCHARGE 09/01/19
[2019-08-31 19:45] VITALS: BP 115/64
--- NOTE | 2019-08-31 21:25 | NUR ---
PATIENT HAD DIAYLSIS TODAY 1100 REMOVED ATE DINNER AFTER. EARLIER TREATMENTS ORDERED. PT WAS UP FOR BREAKFAST AND LUNCH TO BEDSIDE CHAIR. COLOSTOMY EMPTIED. R TESSIO FOR DIAYLSIS. PT TO DISCHARGE TOMMOROW. EKG MANAGER TO GIVE ABT PO AFTER DIAYLSIS. HERE TO VISIT. PT PLEASANT AND COOPERATIVE WITH CARE.
[2019-09-01 03:35] VITALS: BP 104/60
--- NOTE | 2019-09-01 04:11 | NUR ---
ASSUMED PT CARE AROUND 1900. PT IS ORIENTED X3-4. PT FINISHED DIALYSIS DURING BEGINNING OF THIS SHIFT. TOLERATED WELL. BG WAS 56 BUT PT WAS ASYMPTOMATIC. PT ATE LATE DINNER AND BG IMPROVED TO WITHIN NORMAL LIMITS. C/O RIGHT LEG AND KNEE PAIN. PAIN MEDICATION GIVEN ORDERED. REPOSITIONED TO PREVENT FURTHER SKIN BREAKDOWN. PT HAS BEEN SLEEPING MOST OF THE NIGHT. RESP EVEN AND UNLABORED. VSS. AFEBRILE. FALL PRECAUTIONS IN PLACE. PROGRESSING TOWARD POC GOALS. WILL CONTINUE TO MONITOR FURTHER.
[2019-09-01 09:25] VITALS: BP 100/58
--- NOTE | 2019-09-01 11:03 | NUR ---
ASSUMED CARE OF PT AT 0700. COLOSTOMY DRAINED 300. ALL MORNING MEDICATIONS GIVEN. PT ON 2.0 OF O2. DRESSING ON THE R BKA CLEANED WITH NS, XEROFORM, ABD, AND KERLIX. WOUND ABOVE R BKA CLEANED AND AIR DRYED. WOUND ON THE SACRUM CLEANED WITH NS AND SILVERDENE/MORPHINE CREAM APPLIED MIXED WITH BARRIER CREAM AND BORDERFOAM APPLIED ALONG WITH TRANSPARENT DRESSING TO KEEP IN PLACE. PICTURES OF WOUNDS TAKEN. PT WAS DISCAHRGED TO [facility] . CALLED AND GAVE REPORT TO THE ADMISSION NURSE.
--- NOTE | 2019-09-02 14:25 | HC ---
[facility] [place] [address] CONSULTATION Name: SERENITY LOVELACE Room #: 437-P [facility] IN M.R.#: [id number] Admission: 08/11/19 Attend Phys: Slim Holliday MD Discharge: 09/01/19 Date of : 42 Report #: [id number] THIS REPORT FOR: //name// CC: Zack Bordenhens DATE OF SERVICE: 08/13/2019 REASON FOR CONSULTATION: Osteomyelitis, right toe. HISTORY OF PRESENT ILLNESS: The patient is a 78-year-old female with a history of right great toe amputation on 07/20/2019. She was admitted from the wound care team with worsening pain apparently and cellulitis. Yesterday, she underwent thrombectomy with a resultant good patency per the report. REVIEW OF SYSTEMS: SKIN: Denies other wounds. NEUROLOGIC: Denies numbness or tingling. PAST MEDICAL HISTORY: Obtained partially from the patient's medical record and partially from the patient, which includes end-stage renal disease, coronary artery disease and peripheral vascular disease. ALLERGIES: INCLUDE CODEINE. SOCIAL HISTORY: The patient lives at home with her , does not ambulate. Alcohol and smoking status is unknown. MEDICATIONS: The MAR was reviewed, which at this point shows fentanyl, multivitamins, midodrine, fludrocortisone, Senokot, amiodarone, Zosyn, gabapentin, clotrimazole, oxycodone, ondansetron and acetaminophen. PAST SURGICAL HISTORY: Left below-knee amputation and right great toe amputation. LABORATORY STUDIES: Done on 08/13/2019 show white blood cell count 12.5. This is decreased from 08/11/2019 when the white blood cell count was 15.3, hemoglobin 10.3, hematocrit 34.5, platelet count 401. ESR on 08/11/2019 was 30. Chemistry on 08/13/2019 shows a low potassium at 3.2. Sodium is normal. Creatinine is elevated at 3.1, albumin is low at 2.5. PHYSICAL EXAMINATION: GENERAL: The patient is alert and oriented x 3. She interacts appropriately. She is a well-developed, well-nourished female in no acute distress. VITAL SIGNS: Most recent vital signs show temperature of 36.7, heart rate 66, [facility] [address] [place] [address] CONSULTATION Name: SERENITY LOVELACE Room #: 437-P [facility] IN ..#: [id number] Admission: 08/11/19 Attend Phys: Slim Holliday MD Discharge: 09/01/19 Date of : 42 Report #: [id number] respiratory rate 18, blood pressure 91/51, pulse oximetry is 99% on 2 liters nasal cannula. EXTREMITIES: Examination of her right lower extremity, there is a surgical wound with an eschar at the location of the great toe amputation site. There is no erythema. Sensation is intact. I am unable to palpate pulses. She has brisk capillary refill. She has moderate tenderness at the surgical site. IMPRESSION AND PLAN: Status post right great toe amputation approximately 3 weeks ago. This is healing very slowly. The patient underwent a vascular procedure with Interventional Radiology yesterday. I will await the wound care team and ID's recommendations regarding if the patient is able to heal this wound or requires a below-knee amputation. Thank you very much for allowing me to participate in the care of this patient. I will continue to follow. <ELECTRONICALLY SIGNED> By: Sally Barboza MD 09/02/19 1425 0714 [id number] Sally Barboza MD /nt
--- NOTE | 2019-09-02 14:25 | O ---
[facility] [place] [address] OPERATIVE REPORT Name: SERENITY LOVELACE Room #: 437-P [facility] IN M.R.#: [id number] Admission: 08/11/19 Attend Phys: Slim Holliday MD Discharge: 09/01/19 Date of : 42 Report #: [id number] THIS REPORT FOR: //name// CC: Zack Bordenhens DATE OF SERVICE: 08/16/2019 PREOPERATIVE DIAGNOSES: Right ischemic foot with wound and osteomyelitis and peripheral vascular disease. POSTOPERATIVE DIAGNOSES: Right ischemic foot with wound and osteomyelitis and peripheral vascular disease. PROCEDURE PERFORMED: Right below-knee amputation. SURGEON: Sally Barboza MD ANESTHESIA: General mask anesthesia. ESTIMATED BLOOD LOSS: 300 mL. TOURNIQUET TIME: 111 minutes. COMPLICATIONS: None. CONDITION: Stable. DISPOSITION: Recovery room. INDICATIONS: The patient is a 78-year-old female with severe right peripheral vascular disease and claudication. She is required to hold her foot off the edge of the bed to allow her pain to be tolerable. She has a nonhealing wound from the great toe amputation and second toe osteomyelitis. It has been recommended by myself and multiple other physicians for the patient to undergo below-knee amputation. The risks, benefits, alternatives, complications were discussed including but not limited to infection, wound healing problems, stump pain, infection. I spoke with both the patient and her . Informed consent was obtained. The correct extremity was identified and labeled by myself after verbal confirmation of the patient as well as visual confirmation and signed informed consent. DESCRIPTION OF PROCEDURE: The patient was brought back to the operating room, placed on the operating table in the supine position. She received preoperative antibiotics. Tourniquet was placed over padding on the patient's right lower [address] [address] OPERATIVE REPORT Name: SERENITY LOVELACE Room #: 437-P [facility] IN M.R.#: [id number] Admission: 08/11/19 Attend Phys: Slim Holliday MD Discharge: 09/01/19 Date of : 42 Report #: [id number] extremity. Right lower extremity was sterilely prepped and draped in the usual fashion. Final timeout was taken to verify correct patient, operative procedure, operative site, all concurred. Leg was elevated, but was not exsanguinated and then tourniquet inflated. Next, an anterior incision was made 10 cm distal to the knee joint with a 15 cm posterior flap was made. The skin was incised. Dissection was carried down anteriorly through the fascia. The muscle was cauterized and the neurovascular bundle was found. The nerve was cut sharply and the artery and veins were tied off. Next, the tibia and fibula were then cut with an oscillating saw with approximately 30-degree angle dorsally anteriorly on the tibia to decrease any bony prominence. Next, the remaining neurovascular bundles were identified and the nerves were again sharply dissected and the vasculature was tied off with 2-0 silk ties. Hemostasis was achieved. The flap was then fashioned. The wound was thoroughly irrigated. A deep drain was placed and sutured in place. The fascia was closed with 0 Vicryl. The subcutaneous tissue was closed with 2-0 Vicryl and then the skin was closed with combination of 3-0 nylon and bill. The wound was dressed with Adaptic and Xeroform and sterile gauze. She was placed in a bulky compressive dressing. All sponge and needle counts were correct. The patient was transferred to postoperative recovery room in stable condition. <ELECTRONICALLY SIGNED> By: Sally Barboza MD 09/02/19 1425 1000 [id number] Sally Barboza MD /nt
== END 2019-09-01 11:00 | DRG 270 ==
LOC: HYPER 13:48 → 4E 16:36 → HYPER 08-13 07:31 → 4S 08-19 13:29
PROVIDERS: Hospitalist; Internal Medicine; Internal Medicine Nephrology; Internal Medicine Pulmonary Disease; Nurse Practitioner; Nurse Practitioner Family; Orthopaedic Surgery Hand Surgery; ADMIT Internal Medicine
DX: I73.9 Peripheral vascular disease, unspecified (principal); N18.6 End stage renal disease; L89.323 Pressure ulcer of left buttock, stage 3; E43 Unspecified severe protein-calorie malnutrition; J18.9 Pneumonia, unspecified organism; M86.8X7 Other osteomyelitis, ankle and foot; L03.115 Cellulitis of right lower limb; I12.0 Hypertensive chronic kidney disease with stage 5 chronic kidney disease or end stage renal disease; Z68.1 Body mass index [BMI] 19.9 or less, adult; D62 Acute posthemorrhagic anemia; E87.6 Hypokalemia; F32.9 Major depressive disorder, single episode, unspecified; E83.42 Hypomagnesemia; I48.0 Paroxysmal atrial fibrillation; D63.8 Anemia in other chronic diseases classified elsewhere; I95.9 Hypotension, unspecified; Z89.512 Acquired absence of left leg below knee; Z88.5 Allergy status to narcotic agent; Z79.82 Long term (current) use of aspirin; Z79.899 Other long term (current) drug therapy; Z99.2 Dependence on renal dialysis; Z90.49 Acquired absence of other specified parts of digestive tract; Z89.411 Acquired absence of right great toe; Z87.891 Personal history of nicotine dependence; Z79.01 Long term (current) use of anticoagulants
CPT/HCPCS: 10102; 10783; 32100; 50010; 50101; 50386; 51412; 53000; 56524; 56526; 56527; 57091; 62110; 62900; 70005

== ENCOUNTER 2019-09-14 09:52 | Inpatient (IN) | payer OTHER ==
[~2019-09-14] VITALS: Ht 157.5 cm; Wt 45.9 kg
[~2019-09-14 09:52] MED LIST changes: +B12INJ SUBQ; +KEFLEX500 M2 PO
[2019-09-14 10:25] VITALS: BP 117/63
--- NOTE | 2019-09-14 19:11 | NUR ---
DIRECT ADMISSION FOR NON HEALING RIGHT STUMP. ALERT X4, PAIN MANAGED WITH MEDICATION. ORTHO AND WOUND CONSULTED. PLACED ON NPO FOR SURGERY WITH ORTHO TOMOROW. DIALYSIS TODAY REMOVED 1L. ADMISSION HISTORY AND ASSESMENT COMPLETED. WOUND TO LEFT BUTTOCK CHEEK AND RIGHT STUMP. BILATERAL BKA, WC BOUND. FALL PRECAUTIONS IN PLACE. CALLS FOR ASSISTANCE
[2019-09-14 19:29] VITALS: BP 102/48
[2019-09-15 04:57] VITALS: BP 95/46
[2019-09-15 05:27] LABS: HEMATOCRIT 30.7 % (37.0-47.0); HEMOGLOBIN 9.5 gm/dL (12.0-15.0); MCH 24.7 pg (26.0-34.0); MCHC 31.1 g/dL (28.0-37.0); MCV 79.3 fL (80.0-100.0); RBC 3.87 mil/uL (4.20-5.00); RDW 19.8 % (10.5-14.5); WBC 6.7 thou/uL (4.0-11.0)
[2019-09-15 05:39] LABS: CALCIUM 8.9 mg/dL (8.5-10.1); CREATININE 3.3 mg/dL (0.6-1.0); POTASSIUM 3.3 mmol/L (3.5-5.1)
--- NOTE | 2019-09-15 06:00 | NUR ---
ASSESSMENT COMPLETED. PT A&OX4. PAIN CONTROLLED WITH PAIN MEDS. PT HAS BEEN NPO AFTER MIDNIGHT FOR POSSIBLE SURGERY TODAY. DRESSING ON RIGHT STUMP AND LEFT BUTTOCKS CLEAN, DRY AND INTACT. NO S/S DISTRESS. CALL HOLLAND WITHIN REACH. CONT MONITORING
--- NOTE | 2019-09-15 09:11 | NUR ---
Assess due to RD consult received for pt with wounds. Familiar with pt from recent prior extended admit. Hx old left BKA but more recent right BKA with severe PVD and buttock wound-wound care has been consulted. Pt also has hx protein calorie malnutrition. Had lost signficiant wt, but now appears to be regaining with new wt 101 lb. Was eating well throughout recent admit and likes to drink Nepro. NPO for possible procedure. Will order Nepro twice daily when diet advanced. Would consider low nutrition risk at this time.
[2019-09-15 09:37] VITALS: BP 91/44
--- NOTE | 2019-09-15 11:01 | NUR ---
OSTOMY CARE pouch edges loose, pt unsure how long pouch has been on? changed today using 2 piece jose alejandro cut to fit appliance, stoma pink viable, budded, peristomal skin intact, loose brown stool noted, cooperative w/ care, supplies placed at bs, will cont to follow prn
[2019-09-15 15:35] VITALS: BP 108/59
--- NOTE | 2019-09-15 18:48 | NUR ---
PT A&OX4, VSS, PAIN IN RIGHT STUMP. PATIENT HAS BILAT BKA. WOUND ON RIGHT BKA AND LEFT BUTTOCK. PATIENT DOWN FOR I&D TO RIGHT BKA. ADMISSION PHOTOS TAKEN. PAIN MEDICATION GIVEN. AT BEDSIDE. NO SIGNS OF DISTRESS. DRESSING CHANGED TO RIGHT BKA AND BUTTOCK AFTER PHOTOS. WILL CONTINUE TO MONITOR.
[2019-09-15 22:20] VITALS: BP 105/57
[2019-09-15 23:36] VITALS: BP 96/49
[2019-09-16 00:35] VITALS: BP 102/54
--- NOTE | 2019-09-16 02:30 | NUR ---
PT ARRIVED FROM PACU AT 1950HRS. PT IS AOX4 AND LETS NEEDS BE KNOWN. FALL PRECAUTION IN PLACE. I&D COMPLETED. PT WAS PLACED ON 5L O2 VIA NC FROM PACU. PT REPORTED SOME PAIN AND WAS TREATED WT PRN PAIN MEDS. DIALYSIS SCHEDULED IN THE AM. PT IS ANURIC. VSS AND NO S/S OF ACUTE DISTRESS. WILL CONTINUE TO MONITOR.
[2019-09-16 04:03] VITALS: BP 95/50
[2019-09-16 06:36] LABS: HEMATOCRIT 31.4 % (37.0-47.0); HEMOGLOBIN 9.7 gm/dL (12.0-15.0); MCH 24.6 pg (26.0-34.0); MCHC 30.9 g/dL (28.0-37.0); MCV 79.7 fL (80.0-100.0); RBC 3.94 mil/uL (4.20-5.00); RDW 19.6 % (10.5-14.5); WBC 5.3 thou/uL (4.0-11.0)
[2019-09-16 06:53] LABS: CALCIUM 8.6 mg/dL (8.5-10.1); CREATININE 4.9 mg/dL (0.6-1.0); POTASSIUM 4.1 mmol/L (3.5-5.1)
[2019-09-16 07:55] VITALS: BP 97/46
--- NOTE | 2019-09-16 08:24 | HC ---
[facility] [place] [address] CONSULTATION Name: SERENITY LOVELACE Room #: 454-P ADM IN M.R.#: [id number] Admission: 09/14/19 Attend Phys: Monica Khan MD Discharge: Date of : 42 Report #: [id number] THIS REPORT FOR: //name// CC: Griffin Khan DATE OF SERVICE: 09/15/2019 CHIEF COMPLAINT: Compromised right BKA incision line. HISTORY OF PRESENT ILLNESS: This is a 78-year-old female patient with history of diabetes mellitus, peripheral vascular disease as well as end-stage renal disease, who I am very familiar from recent hospitalization. She had significant toe infection and required below-knee amputation on 08/16. She had done well post-discharge, but now has presented to the wound clinic with increasing pain, drainage and tissue loss involving the incision line. It appeared to be infected. It is very tender and it was felt that this would not be amenable to a bedside debridement. She has been admitted to the hospital for intravenous antibiotic therapy as well as a surgical consultation for debridement and revision of the BKA stump. PAST MEDICAL HISTORY: Once again is positive for history of diabetes mellitus, severe peripheral vascular disease, end-stage renal disease, requiring hemodialysis, severe protein-calorie malnutrition, stage 3 pressure ulceration of the left buttock and a blister to her right knee. ALLERGIES: CODEINE. MEDICATIONS: Amiodarone, Sensipar, vitamin B12, fludrocortisone, gabapentin, hydrocodone, midodrine, Xarelto, vancomycin. SOCIAL HISTORY: Negative for alcohol or tobacco use. She is , accompanied by her . REVIEW OF SYSTEMS: CONSTITUTIONAL: The patient denies fever, chills, or weight loss. NEUROLOGICAL: The patient denies focal weakness, numbness or tingling. EYES: The patient denies visual changes, redness, or drainage. ENT: The patient denies earache, nasal drainage or sore throat. CARDIOVASCULAR: The patient denies chest pain, palpitations or diaphoresis. PULMONARY: The patient denies cough or shortness of breath. GASTROINTESTINAL: The patient denies nausea, vomiting, diarrhea or abdominal pain. ORTHOPEDIC: The patient complains of significant pain involving the right BKA area. [address] [address] CONSULTATION Name: SERENITY LOVELACE Room #: 454-P [facility] IN M.R.#: [id number] Admission: 09/14/19 Attend Phys: Monica Khan MD Discharge: Date of : 42 Report #: [id number] Other systems in a 14-point review of systems are negative. PHYSICAL EXAMINATION: VITAL SIGNS: At this time include temperature 37.1, pulse 70, respiratory rate 18, blood pressure 108/59. GENERAL: This is a chronically ill-appearing female patient appears to be in minimal distress. HEENT: Head normocephalic. Nose and throat are clear. NECK: Supple. LUNGS: Clear. HEART: Regular rhythm. ABDOMEN: Soft. Bowel sounds present. EXTREMITIES: Lower extremities demonstrate left BKA site is well-healed, right side demonstrates necrosis of the lateral posterior portion of the flap closure, sutures and bill do remain in place. It is very tender to palpation. There is mild warmth and redness noted as well. CLINICAL IMPRESSION: 1. Wound infection with tissue loss involving the right below-knee amputation stump. 2. End-stage renal disease, requiring hemodialysis. 3. Peripheral vascular disease. 4. Status post colectomy for Crohn's disease. RECOMMENDATIONS: At this point in time, the patient will be started on intravenous antibiotic therapy. Continue current medications. We will do hemodialysis. We have consulted Orthopedics and the patient is to go to the operating room today for debridement/revision of the BKA stump. The patient and are agreeable to current plan of care. I appreciate being asked to see her in consultation. <ELECTRONICALLY SIGNED> By: Griffin Franco MD 09/16/19 0824 12 0648 Griffin Franco MD /nt
--- NOTE | 2019-09-16 09:18 | O ---
[facility] [place] [address] OPERATIVE REPORT Name: SERENITY LOVELACE Room #: 454-P ADM IN M.R.#: [id number] Admission: 09/14/19 Attend Phys: Monica Khan MD Discharge: Date of : 42 Report #: [id number] THIS REPORT FOR: //name// CC: Griffin Khan DATE OF SERVICE: 09/15/2019 SERVICE: Orthopedics. FACILITY: [facility]. SURGEON: Zac Wheeler MD HOGSHEAD COOPER: Lavern Jones NP. PREOPERATIVE DIAGNOSES: 1. Nonhealing wound, right leg. 2. Status post prior below knee amputation. 3. End-stage renal disease, on hemodialysis. 4. Sarcopenia. POSTOPERATIVE DIAGNOSES: 1. Nonhealing wound, right leg. 2. Status post prior below knee amputation. 3. End-stage renal disease, on hemodialysis. 4. Sarcopenia. PROCEDURES: Irrigation and debridement down to muscle layer, right leg wound (excisional). COMPLICATIONS: None. DRAINS: None. SPECIMENS: Deep tissue for culture. FINDINGS: 1. No significant purulence. No evidence of necrosis or deep space infection. 2. Successful tension free repair. HISTORY: The patient is a 78-year-old female with history of multiple significant medical problems. She is status post below-knee amputation, had a wound closure and was having difficulty with the wound healing. She had eschar on the lateral aspect of the wound and the wound care team was unable to get [facility] [address] [place] [address] OPERATIVE REPORT Name: SERENITY LOVELACE Room #: 454-P ADM IN M.R.#: [id number] Admission: 09/14/19 Attend Phys: Monica Khan MD Discharge: Date of : 44 Report #: [id number] this to heal and they were also having some difficulty because she has significant pain with wound treatments including simply removing sutures and bill and so it was recommended that she undergo surgical debridement for a more thorough excision and wound treatment. Risks, benefits, alternatives and indication of surgery discussed with her and her preoperatively, risks up to and including mortality and morbidity with repeat surgery. PROCEDURE IN DETAIL: After the right leg was correctly identified in preoperative holding as operative extremity, the patient was taken to the operating room where general anesthesia was induced without complication. Prophylactic antibiotics were not administered intraoperatively. She is on a scheduled regimen currently and this was monitored. Right leg was prepped and draped in standard sterile fashion. No tourniquet was utilized. Our time-out procedure was performed. The wound was opened. There was eschar on the lateral half of the wound. The medial half of the wound was healed, other than two areas of suture abscess and this was debrided. On the lateral side, I excised the eschar sharply, debrided the muscle and fat layer with the rongeur. There was only a limited amount of superficially necrotic tissue, deep, everything was clean. There was no purulence. I did take a deep specimen of tissue for culture at this point, then the wound was copiously irrigated. Repeated a debridement with a curette and then irrigated once more. At this point, I used 2-0 PDS to perform a multilayered closure, which provided good approximation of the skin edges and then 3-0 nylon with diagonal mattress suture used to close the skin in a tension-free repair. The Xeroform was then applied to the wounds, followed by a well-padded dressing. The patient was awakened from anesthesia and taken to recovery room in stable condition. No complications. All counts were correct. <ELECTRONICALLY SIGNED> By: Zac Wheeler MD 09/16/1918 190 24 Zac Wheeler MD /nt
--- NOTE | 2019-09-16 14:09 | NUR ---
PT ADMITTED RELATED TO WCOV, R BKA INFECTION. CM MET WITH PT AT BEDSIDE THIS DAY. PT IS A&O X4. CM ROLE INTRODUCED. 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 PT INDICATED SHE HAD BEEN USING A WC AND A SLIDEBOARD TO ASSIST WITH MOBILITY SEWING MACHINE OPERATOR PAPER BAGS. PT INDICATED SHE HOPES TO RETURN TO [facility] UPON DC TO RESUME SKILLED THERAPY SERVICES. CM CALLED AND SPOKE WITH PT'S SPOUSE AND HE INDICATED THAT THAT IS HIS HOPE WELL. CM TO FOLLOW INDICATED WITH DC PLANNING. REFERRAL SENT TO [facility] THEY WILL NEED AUTH FOR READMSSION.
--- NOTE | 2019-09-16 14:24 | NUR ---
DISCHARGE PLANNING. ANTICIPATED DISCHARGE IN ONE TO TWO DAYS. POST ACUTE RECOMMENDED AT DISCHARGE. PATIENT REFERRAL FAXED TO [facility] PER REQUEST. CALL RECEIVED FROM JIMENA, [facility] ADMISSIONS. JIMENA STATES RECEIVED PATIENT REFERRAL AND WILL BEGIN INSURANCE AUTH PROCESS. PAT TO NOTIFY CM ONCE INSURANCE AUTH OBTAINED. UNIT SW NOTIFIED. FOLLOWING.
[2019-09-16 16:30] VITALS: BP 104/50
[2019-09-16 20:05] VITALS: BP 91/39
--- NOTE | 2019-09-16 20:21 | NUR ---
PT A&Ox4, VSS, GENERALIZED PAIN. PATIENT RECEIVED DIALYSIS, 2 L OFF. NO SIGNS OPF DISTRESS, PATIENT DENIES SOA. DRESSING TO RIGHT STUMP REMAINS C/D/I. WILL CONTINUE TO MONITOR.
--- NOTE | 2019-09-17 04:19 | NUR ---
Patient making progress towards outcome goals. Vitalsigns stable. Denies need for pain medication. Dressing dry and intact.
[2019-09-17 07:22] VITALS: BP 100/49
--- NOTE | 2019-09-17 14:24 | NUR ---
FAXED TODAY'S PT/OT NOTES TO [facility] RECEIVED CONFIRMATION AND LEFT MSG WITH JIMENA IN ADM. DP TO FOLLOW.
--- NOTE | 2019-09-17 19:01 | HC ---
[facility] [address] [address] CONSULTATION Name: SERENITY LOVELACE Room #: 454-P ADM IN M.R.#: [id number] Admission: 09/14/19 Attend Phys: Monica Khan MD Discharge: Date of : 44 Report #: [id number] THIS REPORT FOR: //name// CC: Griffin Khan DATE OF SERVICE: 09/16/2019 INFECTIOUS DISEASE CONSULTATION REASON FOR CONSULTATION: I was asked to evaluate concerning surgical site infection, right BKA. HISTORY OF PRESENT ILLNESS: The 78-year-old known from her previous hospitalization where she had significant peripheral vascular disease, nonhealing ulcer to the lower extremity with gangrene and severe rest pain, unable to be bypassed sufficiently to heal her foot and underwent BKA. Subsequently, has had incisional dehiscence and infection, presented now due to increased pain and drainage. Underwent revision surgery yesterday without complication. Continues to have pain. Awaiting cultures. REVIEW OF SYSTEMS: No fever, chills, or sweats. No cough or sputum production. No nausea, vomiting, or diarrhea. She is with end-stage renal disease, on dialysis via right chest tunneled dialysis catheter. ALLERGIES: CODEINE. MEDICATIONS: As noted on her MAR including vancomycin, amiodarone, Florinef, Neurontin, midodrine, Xarelto, Sensipar. PAST MEDICAL HISTORY, FAMILY HISTORY, AND SOCIAL HISTORY: Unchanged from her previous consultation. Noted that she does have Crohn's disease, status post colectomy and colostomy. Review of systems as noted above with no additions. PHYSICAL EXAMINATION: VITAL SIGNS: Afebrile, hemodynamically stable. GENERAL: Alert and cooperative, lying in bed, in discomfort involving her right BKA stump. HEENT: Unremarkable. CHEST: Clear. Right chest dialysis catheter tunneled without erythema or drainage. HEART: Regular, without murmur. ABDOMEN: Soft and nontender. [facility] [address] [place] [address] CONSULTATION Name: SERENITY LOVELACE Room #: [address] [place] [address] [place] ..#: [id number] Admission: 09/14/19 Attend Phys: Monica Khan MD Discharge: Date of : 44 Report #: [id number] EXTREMITIES: Right BKA stump was dressed and dry. LABORATORY STUDIES: Hemoglobin 9.7, WBC 5.3. Gram stain of the operative tissue, no organisms seen. IMPRESSION: 1. Underlying peripheral vascular disease with nonhealing right below-knee amputation stump with secondary infection. 2. Peripheral vascular disease. 3. Previous colectomy for Crohn's disease. No immunosuppression at this point. 4. Stage 3 left buttock pressure wound. 5. Hypertension. RECOMMENDATIONS: Continue IV antibiotic therapy pending culture results. I am concerned that she may not have adequate blood flow to heal this BKA revision. If she continues to have rest pain and inability to heal, we would consider AKA. We will add gram-negative coverage pending further cultures. <ELECTRONICALLY SIGNED> By: Anmol Noriega MD 09/17/19 [id number] Anmol Noriega MD /nt
--- NOTE | 2019-09-17 19:05 | NUR ---
QUIET UNEVENTFUL DAY. PATIENT HAVING CONSTANT PAIN DESPITE OXYCODONE Q4H AND FENTANYL/ STARTED OXY ER LATE MORNING. BY LATER THIS AFTERNOON HAVING BETTER RELIEF OF PAIN. STATED FENTANYL DID NOT HELP AT ALL. DID NOT EAT MUCH BREAKFAST OR LUNCH. [facility] AND PATIENT ATE A GOOD SUPPER. ON BEDREST. ABLE TO SIT ON SIDE OF BED WITH ASSISTANCE. PHYSICIAN AND WOUND CARE CHANGED RIGHT STUMP DRESSING. AFEBRILE. IV ANTIBIOTIC CONTINUED. FALL PRECAUTIONS IN PLACE.
[2019-09-17 19:35] VITALS: BP 104/48
--- NOTE | 2019-09-18 08:07 | NUR ---
PROGRESS PT A/O X3 RATES PAIN TO STUMP A 7 TO 8 TAKING OXYCODONE WITH EFFECT PT SLEEPS AFTER. TESSIO CATHETER INTACT. VSS, PT SLEPT ON AND OFF THROUGHOUT NIGHT. TO HAVE DIALYSIS TODAY. CONTINUE POC.
[2019-09-18 09:17] VITALS: BP 100/58
--- NOTE | 2019-09-18 14:40 | NUR ---
CARE TEAM INDICATED THAT PT IS MEDICALLY STABLE TO DC BACK TO [facility] THIS DAY AUTH HAS BEEN RECIEVED. PT WILL FINISH WITH DIALYSIS AT 1600 AND FACILITY WOULD PREFER TO ADMIT HER TOMORROW INSTEAD OF LATER THIS EVENING. PHYSICIAN APPROVED. TRASPORT VIA SECURE SET FOR 10:00AM TOMORROW Saturday09/19/19. CM NOTIFIED PT'S SPOUSE, HE IS AWARE AND AGREEABLE. REPORT TO BE CALLED TO ASK FOR RICKEY. FAX ORDERS TO . NO OTHER CM INTERVENTION INDICATED. CASE CLOSED.
--- NOTE | 2019-09-18 20:04 | NUR ---
PT A&OX4, VSS, PAIN IN RIGHT STUMP AND BUTTOCKS. PATIENT COMPLETED DIALYSIS, 1 L OFF. COLOSTOMY CARE GIVEN, BAG CHANGED. FAMILY AT BEDSIDE. NO SIGNS OF DISTRESS. WILL CONTINUE TO MONITOR.
[2019-09-18 20:55] VITALS: BP 94/52
--- NOTE | 2019-09-19 07:59 | NUR ---
PROGRESS PT A/O X4 REPORTS PAIN TO BUTTOCKS BACK AND RIGHT STUMP TAKING OXYCODONE ER AND PERCOCET AND FENTANYL PRN WITH SOME EFFECT PT REFUSES ACCUCHECKS. IV ANTIBIOTICS CONTINUE ORDERED. TOLERATING DIET, COLOSTOMY WITH GOOD OUTPUT CONTINUE POC.
[2019-09-19 08:01] VITALS: BP 111/56
[2019-09-19 08:28] VITALS: BP 111/56
[2019-09-19] MEDS ORDERED: CEFEPIME 11 GM/50 ML IV (09:55)
[2019-09-19] MEDS ORDERED: OXYCONTIN15 MG PO (10:03)
[2019-09-19] MEDS ORDERED: LIDOPATCH1 EACH TRANSDERM (10:03)
[2019-09-19] MEDS ORDERED: OXYCODONE-APAP1 TAB PO (10:03)
--- NOTE | 2019-09-19 10:20 | NUR ---
TRANSPORT HERE AT 0950 TO PROVIDE TRANSPORATION TO [facility] SKILLED. REPORT CALLED TO GRISELDA AT [facility]. TRANSFERED TO W/C WITH [employer] ASSIST. VERY PLESANT AND COOPERATIVE. AA0X4. GOOD APPETITE FOR BREAKFAST. NO C/O PAIN. DISCHARGED PER DR. SOTO
== END 2019-09-19 10:28 | DRG 500 ==
LOC: HYPER 09:52 → 4W 09:53 → HYPER 19:15 → 4W 09-19 10:28
PROVIDERS: Nurse Practitioner Acute Care; Orthopaedic Surgery Sports Medicine; ADMIT Internal Medicine
PROC: 0KBS0ZZ Excision of Right Lower Leg Muscle, Open Approach (ICD-10-PCS; principal; 2019-09-15)
PROC: 5A1D70Z Performance of Urinary Filtration, Intermittent, Less than 6 Hours Per Day (ICD-10-PCS; 2019-09-18)
DX: T87.43 Infection of amputation stump, right lower extremity (principal); L89.323 Pressure ulcer of left buttock, stage 3; N18.6 End stage renal disease; E43 Unspecified severe protein-calorie malnutrition; I12.0 Hypertensive chronic kidney disease with stage 5 chronic kidney disease or end stage renal disease; L03.115 Cellulitis of right lower limb; Z68.1 Body mass index [BMI] 19.9 or less, adult; K50.90 Crohn's disease, unspecified, without complications; I95.9 Hypotension, unspecified; T87.81 Dehiscence of amputation stump; I48.91 Unspecified atrial fibrillation; B96.5 Pseudomonas (aeruginosa) (mallei) (pseudomallei) as the cause of diseases classified elsewhere; M62.84 Sarcopenia; E11.22 Type 2 diabetes mellitus with diabetic chronic kidney disease; Y83.8 Other surgical procedures as the cause of abnormal reaction of the patient, or of later complication, without mention of misadventure at the time of the procedure; E11.51 Type 2 diabetes mellitus with diabetic peripheral angiopathy without gangrene; Z99.2 Dependence on renal dialysis; Y92.89 Other specified places as the place of occurrence of the external cause; Z88.5 Allergy status to narcotic agent; Z87.891 Personal history of nicotine dependence
CPT/HCPCS: 10047; 32100; 50010; 50101; 50386; 56525; 56527; 57091; 57103; 62110; 62900; 70005